=== PATIENT | female | born 1940 | race Two or more races ===

== ENCOUNTER 2022-01-16 13:12 | Inpatient (IN) | payer MEDICARE, OTHER ==
[~2022-01-16] VITALS: Ht 165.1 cm; Wt 69.0 kg
[2022-01-16 15:14] LABS: Basophils # (auto) 0.1 10 ^3/uL (0-0.2); Basophils % (auto) 0.4 % (0.0-2.0); Eosinophils # (auto) 0.1 10 ^3/uL (0-0.8); Eosinophils % (auto) 0.5 % (0.0-7.0); Hematocrit 39.7 % (36.0-46.0); Hemoglobin 12.9 g/dL (12.2-16.2); Lymphocytes # (auto) 1.8 10 ^3/uL (0.4-5.4); Lymphocytes % (auto) 11.6 % (10.0-50.0); Mean Corpuscular Hemoglobin 28.1 pg (28.0-32.0); Mean Corpuscular Hgb Conc. 32.5 g/dL (32.0-36.0); Mean Corpuscular Volume 86.6 fL (80.0-100.0); Monocytes # (auto) 0.9 10 ^3/uL (0-1.3); Monocytes % (auto) 5.6 % (0.0-12.0); Neutrophils # (auto) 12.9 10 ^3/uL (1.6-8.6); Neutrophils % (auto) 81.9 % (37.0-80.0); Red Blood Cells 4.59 10^6/uL (4.0-5.20); Red Cell Distribution Width 16.3 % (11.8-14.3); White Blood Cell 15.7 10^3/uL (4.4-10.8)
[2022-01-16 15:34] LABS: Albumin 3.2 g/dL (3.4-5.0); BUN/Creatinine Ratio 26.8; Calcium 9.2 mg/dL (8.5-10.1); Potassium 4.1 mmol/L (3.5-5.1)
[2022-01-16 15:43] LABS: Bilirubin, Total 0.4 mg/dL (0.2-1.0); Total Protein 6.8 g/dL (6.4-8.2)
[2022-01-16] MEDS ORDERED: cefTRIAXone 1GM/50ML D5W 50 ML IV ONE (17:00)
[2022-01-16 17:17] LABS: Urine Bacteria NONE SEEN /hpf (None Seen); Urine Blood Negative /uL (Negative); Urine Hyaline Cast MOD /lpf (0 - 2); Urine Mucus FEW (None Seen); Urine Specific Gravity 1.022 (1.001-1.035); Urine WBC 24 /hpf (0 - 5)
[2022-01-16] MEDS ORDERED: PANTOPRAZOLE 40 MG/10 ML VIAL INJ IV ONE (19:15)
[2022-01-16] MEDS ORDERED: ONDANSETRON HCL 4 MG/2 ML VIAL IV PRN (19:15)
[2022-01-16] MEDS: SODIUM CHLORIDE 0.9% 1,000 ML IV SCH (20:49)
[2022-01-17] VITALS (7 sets, daily range): BP systolic 126–157; BP diastolic 40–54
[2022-01-17] MEDS: SODIUM CHLORIDE 0.9% 1,000 ML IV SCH ×3 (05:15→20:23)
[2022-01-17 06:02] LABS: Calcium 8.8 mg/dL (8.5-10.1); Potassium 3.4 mmol/L (3.5-5.1)
[2022-01-17 06:05] LABS: BUN/Creatinine Ratio 24.7
[2022-01-17 06:08] LABS: Bilirubin, Total 0.6 mg/dL (0.2-1.0); Total Protein 6.2 g/dL (6.4-8.2)
[2022-01-17 06:24] LABS: Basophils # (auto) 0.1 10 ^3/uL (0-0.2); Basophils % (auto) 0.6 % (0.0-2.0); Eosinophils # (auto) 0.2 10 ^3/uL (0-0.8); Eosinophils % (auto) 2.5 % (0.0-7.0); Hematocrit 36.9 % (36.0-46.0); Hemoglobin 12.4 g/dL (12.2-16.2); Lymphocytes # (auto) 1.4 10 ^3/uL (0.4-5.4); Lymphocytes % (auto) 14.3 % (10.0-50.0); Mean Corpuscular Hemoglobin 30.1 pg (28.0-32.0); Mean Corpuscular Hgb Conc. 33.6 g/dL (32.0-36.0); Mean Corpuscular Volume 89.7 fL (80.0-100.0); Monocytes # (auto) 0.6 10 ^3/uL (0-1.3); Neutrophils # (auto) 7.5 10 ^3/uL (1.6-8.6); Neutrophils % (auto) 76.6 % (37.0-80.0); Red Blood Cells 4.11 10^6/uL (4.0-5.20); Red Cell Distribution Width 16.2 % (11.8-14.3); White Blood Cell 9.8 10^3/uL (4.4-10.8)
[2022-01-17] MEDS ORDERED: LEVO50TA7 PO (09:21)
[2022-01-17] MEDS: cefTRIAXone 1GM/50ML D5W 50 ML IV SCH (09:23)
[2022-01-17] MEDS: ENOXAPARIN SOD 40 MG/0.4 ML SYRINGE SC SCH (09:24)
[2022-01-17] MEDS ORDERED: PANTOPRAZOLE 40 MG/10 ML VIAL INJ IV SCH (10:00)
[2022-01-17] MEDS ORDERED: NITR-87 PO (12:26)
[2022-01-17] MEDS ORDERED: LEVO250T69 PO (12:27)
[2022-01-17] MEDS: LEVOTHYROXINE SODIUM 100 MCG TAB PO SCH (13:46)
[2022-01-17] MEDS: ACETAMINOPHEN 325 MG TAB PO PRN (17:28)
[2022-01-17] MEDS ORDERED: ATEN50TA PO (18:47)
[2022-01-17] MEDS ORDERED: ACET-1156 PO (18:48)
[2022-01-17] MEDS ORDERED: CHOL1CAP58 PO (18:49)
[2022-01-17] MEDS ORDERED: CYANPOW IM (18:51)
[2022-01-17] MEDS ORDERED: ALEN70TA74 PO (18:51)
[2022-01-17] MEDS ORDERED: HYDR25TA5 PO (18:52)
[2022-01-18 05:00] VITALS: BP 146/57
[2022-01-18] MEDS: LEVOTHYROXINE SODIUM 100 MCG TAB PO SCH (06:58)
[2022-01-18 09:00] VITALS: BP 154/50
[2022-01-18] MEDS: cefTRIAXone 1GM/50ML D5W 50 ML IV SCH (09:35)
[2022-01-18] MEDS: ENOXAPARIN SOD 40 MG/0.4 ML SYRINGE SC SCH (09:35)
[2022-01-18 12:30] VITALS: BP 150/50
[2022-01-18] MEDS: ACETAMINOPHEN 325 MG TAB PO PRN (15:12)
[2022-01-18 15:55] VITALS: BP 150/50
[2022-01-18 17:30] VITALS: BP 144/76
== END 2022-01-18 17:50 | disposition home health service (06) | DRG 690 ==
LOC: ER 13:12 → EDBD 13:12 → OVERFLOW 19:03 → CENTRAL 01-17 04:10
PROVIDERS: ADMIT Nurse Practitioner Family; ATTEND Student in an Organized Health Care Education/Training Program
DX: N30.90 Cystitis, unspecified without hematuria (principal); E46 Unspecified protein-calorie malnutrition; L89.90 Pressure ulcer of unspecified site, unspecified stage; S00.03XA Contusion of scalp, initial encounter; E89.0 Postprocedural hypothyroidism; I10 Essential (primary) hypertension; W18.39XA Other fall on same level, initial encounter; Y93.89 Activity, other specified; Z68.25 Body mass index [BMI] 25.0-25.9, adult; Z88.2 Allergy status to sulfonamides; Y92.89 Other specified places as the place of occurrence of the external cause; Y99.8 Other external cause status
CPT/HCPCS: 36415; 70450; 80053; 81001; 85025; 87040; 87086; 87426; 96365; 96375; 97116; 97163; 97530; C9113; G0378; J0696

== ENCOUNTER 2024-08-01 11:02 | Inpatient (IN) | payer OTHER, MEDICARE ==
[~2024-08-01] VITALS: Ht 157.5 cm; Wt 48.3 kg
[~2024-08-01 11:02] MED LIST: ACET-1881 PO; ALEN70TA74 PO; ATEN50TA PO; CHOL1CAP58 PO; CYANPOW IM; HYDR25TA5 PO; LEVO250T58 PO; LEVO50TA7 PO; NITR-87 PO
--- NOTE | 2024-08-01 11:16 | ED.PDOC ---
History of Present Illness HPI Comments 83-year-old female brought by paramedics because she has been having lower back and pelvic pain for the past three months. For the past two days her pelvic pain has been excruciating 12/18. She does not eat solid food. Puree food. She has not been tolerating diet well in the last several weeks. She is bed ridden. Mostly sitting in a chair. She does not ambulate. Unable to get a good history from the patient. Chief Complaint: Failure to Thrive Time Seen by MD: 11:04 Primary Care Provider: UNKNOWN Reviewed Notes: Nurses Notes, Medications, Allergies Allergies: Coded Allergies: Sulfa Antibiotics (Verified Allergy, Severe, 01/16/22) Home Meds Reported Medications Hctz (Hydrochlorothiazide) 25 Mg Tab, 12.5 MG PO DAILY, TAB 01/17/22 Alendronate Sodium (Alendronate Sodium) 70 Mg Tab, 1 TAB PO QWEEKLY, #4 TAB 3 Refills 01/17/22 Cyanocobalamin (Cyanocobalamin) Pow, 1 VIAL IM weekly, POW 01/17/22 Cholecalciferol (Vitamin D3 1.25 mg (11871 Ut)) 1 Cap Cap, 1 CAP PO Weekly, CAP 01/17/22 Acetaminophen (Acetaminophen) 325 Mg Tab, 500 MG PO Q6HP for pain for 30 Days, MG 0 Refills 01/17/22 Atenolol (Atenolol) 50 Mg Tab, 50 MG PO BID for 30 Days, MG 01/17/22 Levofloxacin Hemihydrate (LEVOFLOXACIN) 250 Mg Tab, 250 MG PO DAILY for 10 Days, MG 01/17/22 Nitrofurantoin Monohydrate Mac (Macrobid) 100 Mg Cap, 100 MG PO DAILY, CAP 01/17/22 Levothyroxine Sodium (Levothyroxine Sodium) 50 Mcg Tab, 100 MCG PO DAILY, TAB 01/17/22 Information Source: Patient, Emergency Med Personnel Mode of Arrival: EMS Severity: Moderate Timing: Days Duration: Since onset Past Medical History PAST MEDICAL HISTORY: Denies Surgical History: Denies all surgeries MATTRESS FILLING MACHINE TENDER History: No Pertinent MATTRESS FILLING MACHINE TENDER History Family History Family History: Reviewed,noncontributory to illness Social History Smoker: Non-Smoker Alcohol: Denies ETOH Use Drugs: Denies Drug Use Lives In: Home Constitutional: denies: chills, diaphoresis, fatigue, fever, malaise, sweats, weakness, others EENTM: denies: blurred vision, double vision, ear bleeding, ear discharge, ear drainage, ear pain, ear ringing, eye pain, eye redness, hearing loss, mouth pain, mouth swelling, nasal discharge, nose bleeding, nose congestion, nose pain, photophobia, tearing, throat pain, throat swelling, voice changes, others Respiratory: denies: cough, hemoptysis, orthopnea, SOB at rest, shortness of breath, SOB with excertion, stridor, wheezing, others Cardiovascular: denies: chest pain, dizzy spells, diaphoresis, Dyspnea on exertion, edema, irregular heart beat, left arm pain, lightheadedness, palp itations, PND, syncope, others Gastrointestinal: denies: abdomen distended, abdominal pain, blood streaked bowels, constipated, diarrhea, dysphagia, difficulty swallowing, hematemesis, melena, nausea, poor appetite, poor fluid intake, rectal bleeding, rectal pain, vomiting, others Genitourinary: denies: abnormal vagina bleeding, burning, dyspareunia, dysuria, flank pain, frequency, hematuria, incontinence, pain, , vagina discharge, urgency, others Neurological: denies: dizziness, fainting, headache, left sided numbness, left sided weakness, numbness, paresthesia, pre-existing deficit, right sided numbness, right sided weakness, seizure, speech problems, tingling, tremors, weakness, others Musculoskeletal: reports: back pain (Low), joint pain (Pelvic); denies: gout, joint swelling, muscle pain, muscle stiffness, neck pain, others Integumetry: denies: bruises, change in color, change in hair/nails, dryness, laceration, lesions, lumps, rash, wounds, others Allergic/Immunocompromised: denies: Difficulty Healing, Frequent Infections, Hives, Itching, others Hematologic/Lymphatic: denies: anemia, blood clots, easy bleeding, easy bruising, swollen glands, others Endocrine: denies: excessive hunger, excessive sweating, excessive thirst, excessive urination, flushing, intolerance to cold, intolerance to heat, unexplained weight gain, unexplained weight loss, others Psychiatric: denies: anxiety, bipolar disorder, depression, hopeless, panic disorder, schizophrenia, sleepless, suicidal, others Physical Exam General Appearance: Moderate Distress, Thin HEENT: Normal ENT Inspection, Pharynx Normal, TMs Normal Neck: Full Range of Motion, Non-Tender, Normal, Normal Inspection Respiratory: Chest Non-Tender, Lungs Clear, No Accessory Muscle Use, No Respiratory Distress, Normal Breath Sounds Cardiovascular: No Edema, No JVD, No Murmur, No Gallop, Normal Peripheral Pulses, Regular Rate/Rhythm Breast Exam: Deferred Gastrointestinal: No Organomegaly, Non Tender, No Pulsatile Mass, Normal Bowel Sounds, Soft Genitalia: Deferred Pelvic: Deferred Rectal: Deferred Extremities: No calf tenderness, No pedal edema Musculoskeletal : Apperance: Normal Neurologic: Alert, No Motor Deficits, No Sensory Deficits Cerebellar Function: NOT DONE Reflexes: NOT DONE Skin: Normal Color Peripheral Pulses: 3+ Radial (R), 3+ Radial (L) Lymphatic: NOT DONE Was a procedure done? Was a procedure done?: No Differential Dx Considerations may include: Anemia Electrolyte imbalance X-Ray, Labs, Meds, VS Vital Signs Date Time Temp Pulse Resp B/P (MAP) Pulse Ox O2 Delivery O2 Flow Rate FiO2 08/01/24 11:26 97.7 62 16 157/47 (83) 96 97.7 08/01/24 11:21 62 16 96 Room Air* 0 21 08/01/24 11:10 98.5 62 20 153/58 (89) 97 98.5 Lab Test 08/01/24 11:40 Range/Units White Blood Count Pending Red Blood Count Pending Hemoglobin Pending Hematocrit Pending Mean Corpuscular Volume Pending Mean Corpuscular Hemoglobin Pending Mean Corpuscular Hemoglobin Concent Pending Red Cell Distribution Width Pending Platelet Count Pending Mean Platelet Volume Pending Neutrophils (%) (Auto) Pending Lymphocytes (%) (Auto) Pending Monocytes (%) (Auto) Pending Basophils (%) (Auto) Pending Neutrophils # (Auto) Pending Lymphocytes # (Auto) Pending Monocytes # (Auto) Pending Sodium Level Pending Potassium Level Pending Chloride Level Pending Carbon Dioxide Level Pending Anion Gap Pending Blood Urea Nitrogen Pending Creatinine Pending Glomerular Filtration Rate Calc Pending BUN/Creatinine Ratio Pending Serum Glucose Pending Calcium Level Pending Troponin I High Sensitivity Pending Patient alert. Answering simple questions. She is underweight. Vitals stable. Possible she is not tolerating diet. Failure to thrive. Review her history. Chronic in nature. Explained to the patient that she will be admitted for further workup checking her feeding status Continue cardiac monitoring. [address] [address] Ph: [phone] DIAGNOSTIC IMAGING Diagnostic Imaging Report : [id number] Signed PATIENT: DAVY LEVINE ACCT: [id number] UNIT: [id number] : 1940 LOC: ER ROOM / BED: / AGE / SEX: 83 / F ADM STATUS: REG ER SERVICE 1104 ORDERING PHYSICIAN: JANELLE GARCIA MD PROCEDURE(s): CXRP - CHEST PORTABLE REASON: sob ORDER NUMBER(s): [id number], ACCESSION NUMBER(s): [id number] CHEST RADIOGRAPH Indication: sob Technique: Single frontal view of the chest was obtained Comparison: None FINDINGS: Lines and Tubes: None Lungs: No focal consolidation. Pleura: No effusion. No pneumothorax. Cardiomediastinal contours: Unremarkable Bones: No acute osseous abnormality. Old left proximal humerus fracture. IMPRESSION: 1. No acute cardiopulmonary disease. ATED BY: ALEXIS CAROLINA MD DICTATED DATE/TIME: 08/01/24 1140 SIGNED BY: ALEXIS CAROLINA MD SIGNED DATE/TIME: 08/01/24 1140 CC: Time of 1ST Reevaluation: 11:14 Reevaluation 1ST: Unchanged Patient Education/Counseling: Diagnosis, Treatment, Prognosis Family Education/Counseling: No Family Present Departure 1 Departure Time of Disposition: 11:15 Impression: Primary Impression: Failure to thrive Qualified Codes: R62.7 - Adult failure to thrive Disposition: ADMITTED INPATIENT Admit to: Med Surg Condition: Guarded Critical Care Note Critical Care Time?: No Stability Stability form required: No Heart Score Heart Score: Heart Score Response (Comments) Value History Slightly Suspicious 0 EKG Normal 0 Age >65 2 Risk Factors >3 or Hx ASHD 2 Troponin Normal limit 0 Total 4 I personally scribed for JANELLE GARCIA MD ([email or web address]) on 08/01/24 at 11:49. Electronically submitted by Nilson Graham ([email or web address]). JANELLE GARCIA MD August 01, 2024 11:16
[2024-08-01 11:21] VITALS: PULSE 62; RESP 16; O2SAT 96
--- NOTE | 2024-08-01 11:43 | DVH ---
CHEST RADIOGRAPH Indication: sob Technique: Single frontal view of the chest was obtained Comparison: None FINDINGS: Lines and Tubes: None Lungs: No focal consolidation. Pleura: No effusion. No pneumothorax. Cardiomediastinal contours: Unremarkable Bones: No acute osseous abnormality. Old left proximal humerus fracture. IMPRESSION: 1. No acute cardiopulmonary disease.
[2024-08-01 12:03] LABS: Basophils # (auto) 0.1 10 ^3/uL (0-0.2); Basophils % (auto) 0.9 % (0.0-2.0); Eosinophils # (auto) 0.2 10 ^3/uL (0-0.8); Eosinophils % (auto) 2.5 % (0.0-7.0); Hematocrit 38.3 % (36.0-46.0); Hemoglobin 12.8 g/dL (12.2-16.2); Lymphocytes # (auto) 1.7 10 ^3/uL (0.4-5.4); Lymphocytes % (auto) 20.7 % (10.0-50.0); Mean Corpuscular Hemoglobin 30.2 pg (28.0-32.0); Mean Corpuscular Hgb Conc. 33.5 g/dL (32.0-36.0); Mean Corpuscular Volume 90.2 fL (80.0-100.0); Monocytes # (auto) 0.6 10 ^3/uL (0-1.3); Monocytes % (auto) 7.7 % (0.0-12.0); Neutrophils # (auto) 5.5 10 ^3/uL (1.6-8.6); Neutrophils % (auto) 68.2 % (37.0-80.0); Platelet Count (auto) 346 10^3/uL (140-450); Red Blood Cells 4.24 10^6/uL (4.0-5.20); Red Cell Distribution Width 15.4 % (11.8-14.3); White Blood Cell 8.1 10^3/uL (4.4-10.8)
[2024-08-01 12:11] LABS: Potassium 3.5 mmol/L (3.5-5.1)
[2024-08-01 12:12] LABS: Anion Gap 9 (5-15); Carbon Dioxide 28 mmol/L (20-31); Sodium 144 mmol/L (136-145)
[2024-08-01 12:18] LABS: BUN/Creatinine Ratio 14.3 (10.0-20.0); Glucose 79 mg/dL (74-106)
[2024-08-01 12:20] LABS: Blood Urea Nitrogen 8 mg/dL (9-23); Calcium 8.5 mg/dL (8.7-10.4); Chloride 107 mmol/L (98-107)
[2024-08-01 13:50] LABS: Urine Bacteria FEW /hpf (None Seen); Urine Blood TRACE /uL (Negative); Urine Clarity Turbid (Clear); Urine Color Light-Orange (Yellow); Urine Mucus FEW (None Seen); Urine Protein, UAD Negative (Negative); Urine Specific Gravity 1.023 (1.001-1.035); Urine Squamous Epithelial Cell FEW /hpf (<5); Urine Urobilinogen 2 mg/dL (Negative); Urine WBC 13 /HPF (0-5)
--- NOTE | 2024-08-01 15:12 | DVHHP2 ---
Admitting Diagnosis: Failure to thrive History of Present Illness 83-year-old female brought by paramedics because she has been having lower back and pelvic pain for the past three months. For the past two days her pelvic pain has been excruciating 12/18. She does not eat solid food. Puree food. She has not been tolerating diet well in the last several weeks. She is bed ridden. Mostly sitting in a chair. She does not ambulate. Unable to get a good history from the patient. PAST MEDICAL HISTORY: Denies Surgical History: Denies all surgeries DIRECTOR TELEHEALTH History: No Pertinent DIRECTOR TELEHEALTH History Family History Family History: Reviewed,noncontributory to illness Social History Smoker: Non-Smoker Alcohol: Denies ETOH Use Drugs: Denies Drug Use Lives In: Home Allergies: Coded Allergies: Sulfa Antibiotics (Verified Allergy, Severe, 01/16/22) Home Meds Reported Medications Hctz (Hydrochlorothiazide) 25 Mg Tab, 12.5 MG PO DAILY, TAB 01/17/22 Alendronate Sodium (Alendronate Sodium) 70 Mg Tab, 1 TAB PO QWEEKLY, #4 TAB 3 Refills 01/17/22 Cyanocobalamin (Cyanocobalamin) Pow, 1 VIAL IM weekly, POW 01/17/22 Cholecalciferol (Vitamin D3 1.25 mg (82344 Ut)) 1 Cap Cap, 1 CAP PO Weekly, CAP 01/17/22 Acetaminophen (Acetaminophen) 325 Mg Tab, 500 MG PO Q6HP for pain for 30 Days, MG 0 Refills 01/17/22 Atenolol (Atenolol) 50 Mg Tab, 50 MG PO BID for 30 Days, MG 01/17/22 Levofloxacin Hemihydrate (LEVOFLOXACIN) 250 Mg Tab, 250 MG PO DAILY for 10 Days, MG 01/17/22 Nitrofurantoin Monohydrate Mac (Macrobid) 100 Mg Cap, 100 MG PO DAILY, CAP 01/17/22 Levothyroxine Sodium (Levothyroxine Sodium) 50 Mcg Tab, 100 MCG PO DAILY, TAB 01/17/22 Current Medications Current Medications Medications (Trade) Dose Ordered Sig/Manas Route PRN Reason Start Time Stop Time Status Last Admin Ceftriaxone Sodium 50 ml @ 100 mls/hr DAILY IV 08/01/24 15:15 UNV Sodium Chloride (Saline Lock Ns) 10 ml Q8HR IV 08/01/24 22:00 UNV Docusate Sodium (Colace Capsule) 100 mg BIDPRN PRN PO FOR CONSTIPATION 08/01/24 15:15 UNV Acetaminophen (Tylenol Tablet) 650 mg Q6HP PRN PO PAIN SCALE 1-3 OR TEMP>100.4 08/01/24 15:15 UNV Acetaminophen/ Hydrocodone Bitart (Jud 5/325MG Tab) 1 tab Q4HP PRN PO MODERATE PAIN (4-6 PAIN SCALE) 08/01/24 15:15 UNV Ondansetron HCl (Zofran) 4 mg Q4HP PRN IV NAUSEA / VOMITING 08/01/24 15:15 UNV Enoxaparin Sodium (Lovenox) 40 mg DAILY SC 08/02/24 10:00 UNV Hydrochlorothiazide (hydroCHLOROthiazide TABLET) 12.5 mg DAILY PO 08/02/24 10:00 UNV Levothyroxine Sodium (Synthroid Tablet) 100 mcg DAILY PO 08/02/24 10:00 UNV Patient Own Medication 1 tab QWEEKLY PO 08/01/24 15:15 UNV Patient Own Medication 50 mg BID PO 08/01/24 22:00 UNV Patient Own Medication 1 cap Weekly PO 08/01/24 15:15 UNV Patient Own Medication 1 vial weekly IM 08/01/24 15:15 UNV Vital Signs Vital Signs Date Time Temp Pulse Resp B/P (MAP) Pulse Ox O2 Delivery O2 Flow Rate FiO2 08/01/24 14:00 97.9 58 18 145/50 (81) 96 97.9 08/01/24 11:21 Room Air* 0 21 Physical Exam Generally-83 years old woman, well nourished well developed. No apparent distress HEENT-atraumatic normocephalic Heart-rate and rhythm Lungs clear to auscultate bilaterally Abdomen soft, mild tender suprapubic, nondistended Musculoskeletal-no edema cyanosis Neuro-awake, alert, follows simple commands, gets confused, strength and sensation intact Results Labs Test 08/01/24 13:08 08/01/24 12:46 08/01/24 11:40 Range/Units Urine Color Light-orange Yellow Urine Clarity Turbid H Clear Urine pH 6.0 5.0-9.0 Urine Specific [place] 1.023 1.001-1.035 Urine Protein Negative Negative Urine Ketones 2+ H Negative Urine Blood Trace H Negative /uL Urine Nitrite Negative Negative Urine Bilirubin Negative Negative Urine Urobilinogen 2 H Negative mg/dL Urine Leukocyte Esterase 1+ Negative /uL Urine RBC 20 0 - 4 /hpf Urine Microscopic WBC 13 H 0-5 /HPF Urine Squamous Epithelial Cells Few <5 /hpf Urine Bacteria Few H None Seen /hpf Urine Mucus Few None Seen Urine Glucose Normal Normal mg/dL Troponin I High Sensitivity 6 </=34 ng/L White Blood Count 8.1 4.4-10.8 10^3/uL Red Blood Count 4.24 4.0-5.20 10^6/uL Hemoglobin 12.8 12.2-16.2 g/dL Hematocrit 38.3 36.0-46.0 % Mean Corpuscular Volume 90.2 80.0-100.0 fL Mean Corpuscular Hemoglobin 30.2 28.0-32.0 pg Mean Corpuscular Hemoglobin Concent 33.5 32.0-36.0 g/dL Red Cell Distribution Width 15.4 H 11.8-14.3 % Platelet Count 346 140-450 10^3/uL Mean Platelet Volume 8.5 6.9-10.8 fL Neutrophils (%) (Auto) 68.2 37.0-80.0 % Lymphocytes (%) (Auto) 20.7 10.0-50.0 % Monocytes (%) (Auto) 7.7 0.0-12.0 % Eosinophils (%) (Auto) 2.5 0.0-7.0 % Basophils (%) (Auto) 0.9 0.0-2.0 % Neutrophils # (Auto) 5.5 1.6-8.6 10 ^3/uL Lymphocytes # (Auto) 1.7 0.4-5.4 10 ^3/uL Monocytes # (Auto) 0.6 0-1.3 10 ^3/uL Eosinophils # (Auto) 0.2 0-0.8 10 ^3/uL Basophils # (Auto) 0.1 0-0.2 10 ^3/uL Nucleated Red Blood Cells 0.0 % Sodium Level 144 136-145 mmol/L Potassium Level 3.5 3.5-5.1 mmol/L Chloride Level 107 98-107 mmol/L Carbon Dioxide Level 28 20-31 mmol/L Anion Gap 9 5-15 Blood Urea Nitrogen 8 L 9-23 mg/dL Creatinine 0.56 0.550-1.02 mg/dL Glomerular Filtration Rate Calc 90 >90 mL/min BUN/Creatinine Ratio 14.3 10.0-20.0 Serum Glucose 79 74-106 mg/dL Calcium Level 8.5 L 8.7-10.4 mg/dL Primary Diagnosis Failure to thrive likely due to acute urinary tract infection Plan Positive UA Start ceftriaxone 1 g daily Check urine culture IV fluids Antiemetic Bowel regimen Full code Lovenox for DVT prophylaxis No GI prophylaxis needed Regular diet Plan discussed with: Patient Problems List: (1) Failure to thrive Status: Acute Date of Service: August 01, 2024 Billing Provider: REGGIE PATEL MD Common Visit Codes: [id number] INP/OBS CARE (MOD) REGGIE PATEL MD August 01, 2024 15:12
[2024-08-01] MEDS ORDERED: ONDANSETRON HCL 4 MG/2 ML VIAL IV PRN (15:15)
[2024-08-01] MEDS ORDERED: ACETAMINOPHEN 325 MG TAB PO PRN (15:15)
[2024-08-01] MEDS: cefTRIAXone 1GM/50ML D5W 50 ML IV SCH (15:51)
[2024-08-01] MEDS ORDERED: CYANOCOBALAMIN IM SCH (17:00)
[2024-08-01 17:30] VITALS: BP 149/47; PULSE 66; RESP 18; TEMP 98; O2SAT 98
[2024-08-01] MEDS ORDERED: LOSA-534 PO (18:42)
[2024-08-01] MEDS ORDERED: MET500T PO (18:43)
[2024-08-01] MEDS ORDERED: APIX5TAB PO (18:44)
[2024-08-01] MEDS ORDERED: DRON400T PO (18:45)
[2024-08-01 20:00] VITALS: PULSE 71; RESP 16; O2SAT 97
[2024-08-01 21:00] VITALS: BP 149/47; PULSE 70; RESP 18; TEMP 97.9; O2SAT 98
[2024-08-01] MEDS: ATENOLOL 25 MG TAB PO SCH (22:00)
[2024-08-01] MEDS: SODIUM CHLOR 0.9% PF (SALINE LOCK) 10ML VIAL/SYR IV SCH (22:13)
[2024-08-02] VITALS (7 sets, daily range): BP systolic 117–154; BP diastolic 59–67; PULSE 65–92; RESP 16–19; TEMP 97.4–97.8; O2SAT 92–96
[2024-08-02] MEDS: HYDROcodone-ACET 5/325MG TAB PO PRN (05:40)
[2024-08-02 08:02] LABS: Basophils # (auto) 0.1 10 ^3/uL (0-0.2); Basophils % (auto) 0.5 % (0.0-2.0); Eosinophils # (auto) 0.1 10 ^3/uL (0-0.8); Eosinophils % (auto) 1.4 % (0.0-7.0); Hematocrit 39.5 % (36.0-46.0); Hemoglobin 13.4 g/dL (12.2-16.2); Lymphocytes # (auto) 1.4 10 ^3/uL (0.4-5.4); Lymphocytes % (auto) 13.6 % (10.0-50.0); Mean Corpuscular Hemoglobin 30.3 pg (28.0-32.0); Mean Corpuscular Hgb Conc. 33.8 g/dL (32.0-36.0); Mean Corpuscular Volume 89.4 fL (80.0-100.0); Monocytes # (auto) 0.6 10 ^3/uL (0-1.3); Monocytes % (auto) 5.9 % (0.0-12.0); Neutrophils # (auto) 8.2 10 ^3/uL (1.6-8.6); Neutrophils % (auto) 78.6 % (37.0-80.0); Platelet Count (auto) 361 10^3/uL (140-450); Red Blood Cells 4.42 10^6/uL (4.0-5.20); Red Cell Distribution Width 15.4 % (11.8-14.3); White Blood Cell 10.4 10^3/uL (4.4-10.8)
[2024-08-02 08:24] LABS: Alanine Aminotransferase < 9 U/L (7-40); Albumin 3.7 g/dL (3.2-4.8); Alkaline Phosphatase 75 U/L (46-116); Anion Gap 11 (5-15); Aspartate Aminotransferase 45 U/L (13-40); Bilirubin, Total 0.5 mg/dL (0.2-1.0); Blood Urea Nitrogen 9 mg/dL (9-23); Calcium 9.5 mg/dL (8.7-10.4); Carbon Dioxide 27 mmol/L (20-31); Chloride 105 mmol/L (98-107); Glucose 98 mg/dL (74-106); Potassium 3.5 mmol/L (3.5-5.1); Sodium 143 mmol/L (136-145); Total Protein 6.1 g/dL (5.7-8.2)
[2024-08-02] MEDS: ENOXAPARIN SOD 40 MG/0.4 ML SYRINGE SC SCH (09:10)
[2024-08-02] MEDS: LEVOTHYROXINE SODIUM 50 MCG TAB PO SCH (09:10)
[2024-08-02] MEDS ORDERED: hydroCHLOROthiazide 25 MG TAB PO SCH (10:00)
--- NOTE | 2024-08-02 17:58 | DVHPN2 ---
Subjective In bed resting Changes from previous H/P or p: No Changes Objective Vitals Vital Signs Date Time Temp Pulse Resp B/P (MAP) Pulse Ox O2 Delivery O2 Flow Rate FiO2 08/02/24 16:49 97.7 74 19 154/59 (90) 92 97.7 08/02/24 08:00 Room Air* 0 21 Intake/Output Intake and Output 08/02/24 07:00 Output Total 750 ml Balance -750 ml Output Urine Total 750 ml General Appearance: Alert, Oriented X3 Lungs: Clear to auscultation Cardiovascular: Regular rate, Normal S1, Normal S2 Medications Current Medications Medications Dose Ordered Sig/Manas Route Start Time Stop Time Status Last Admin Dose Admin Ceftriaxone Sodium 50 ml @ 100 mls/hr DAILY IV 08/01/24 15:15 08/02/24 09:09 100 MLS/HR Sodium Chloride 10 ml Q8HR IV 08/01/24 22:00 08/02/24 14:00 10 ML Docusate Sodium 100 mg BIDPRN PRN PO 08/01/24 15:15 Acetaminophen 650 mg Q6HP PRN PO 08/01/24 15:15 Acetaminophen/ Hydrocodone Bitart 1 tab Q4HP PRN PO 08/01/24 15:15 08/02/24 05:40 1 TAB Ondansetron HCl 4 mg Q4HP PRN IV 08/01/24 15:15 Enoxaparin Sodium 40 mg DAILY SC 08/02/24 10:00 08/02/24 09:10 40 MG Hydrochlorothiazide 12.5 mg DAILY PO 08/02/24 10:00 Hold Levothyroxine Sodium 100 mcg DAILY PO 08/02/24 10:00 08/02/24 09:10 100 MCG Alendronate Sodium 70 mg QWEEKLY@0600 PO 08/03/24 06:00 Atenolol 50 mg BID PO 08/01/24 22:00 Ergocalciferol 50,000 unit QWEEKLY PO 08/03/24 17:00 Patient Own Medication 1 vial weekly IM 08/01/24 17:00 Hold Laboratory Results Laboratory Tests 08/02/24 07:20 Chemistry Test 08/02/24 07:20 Albumin 3.7 g/dL (3.2-4.8) Calcium Level 9.5 mg/dL (8.7-10.4) Total Protein 6.1 g/dL (5.7-8.2) LFT Test 08/02/24 07:20 Alanine Aminotransferase (ALT) < 9 U/L (7-40) Alkaline Phosphatase 75 U/L (46-116) Aspartate Amino Transferase (AST) 45 U/L (13-40) H Total Bilirubin 0.5 mg/dL (0.2-1.0) Urinalysis Test 08/01/24 13:08 Urine Color Light-orange (Yellow) Urine Clarity Turbid (Clear) H Urine pH 6.0 (5.0-9.0) Urine Specific [place] 1.023 (1.001-1.035) Urine Protein Negative (Negative) Urine Ketones 2+ (Negative) H Urine Blood Trace /uL (Negative) H Urine Nitrite Negative (Negative) Urine Bilirubin Negative (Negative) Urine Urobilinogen 2 mg/dL (Negative) H Urine Leukocyte Esterase 1+ /uL (Negative) Urine RBC 20 /hpf (0 - 4) Urine Microscopic WBC 13 /HPF (0-5) H Urine Squamous Epithelial Cells Few /hpf (<5) Urine Bacteria Few /hpf (None Seen) H Urine Mucus Few (None Seen) Urine Glucose Normal mg/dL (Normal) Microbiology Microbiology Date/Time Source Procedure Growth Status 08/01/24 13:08 Urine - [place] Urine Culture - Preliminary Resulted Assessment/Plan Assessment/Plan Failure to thrive likely due to acute urinary tract infection Plan Positive UA Start ceftriaxone 1 g daily Check urine culture IV fluids Antiemetic Bowel regimen Full code Lovenox for DVT prophylaxis No GI prophylaxis needed Regular diet Plan discussed with: Patient Date of Service: August 02, 2024 Billing Provider: MAGDALENA DONOVAN MD Common Visit Codes: [id number] INP/OBS CARE(HIGH) MAGDALENA DONOVAN MD August 02, 2024 17:58
[2024-08-02] MEDS: DOCUSATE SOD 100 MG CAP PO PRN (21:31)
[2024-08-03] VITALS (7 sets, daily range): BP systolic 114–160; BP diastolic 48–69; PULSE 59–77; RESP 16–19; TEMP 97.4–98.1; O2SAT 95–97
[2024-08-03] MEDS: ALENDRONATE SODIUM 10 MG TAB PO SCH (05:18)
[2024-08-03 07:29] LABS: Basophils # (auto) 0.1 10 ^3/uL (0-0.2); Basophils % (auto) 0.7 % (0.0-2.0); Eosinophils # (auto) 0.2 10 ^3/uL (0-0.8); Eosinophils % (auto) 3.1 % (0.0-7.0); Hematocrit 36.3 % (36.0-46.0); Hemoglobin 12.3 g/dL (12.2-16.2); Lymphocytes # (auto) 1.5 10 ^3/uL (0.4-5.4); Mean Corpuscular Hemoglobin 30.1 pg (28.0-32.0); Mean Corpuscular Volume 88.7 fL (80.0-100.0); Monocytes # (auto) 0.6 10 ^3/uL (0-1.3); Monocytes % (auto) 7.3 % (0.0-12.0); Neutrophils # (auto) 5.4 10 ^3/uL (1.6-8.6); Neutrophils % (auto) 69.9 % (37.0-80.0); Platelet Count (auto) 339 10^3/uL (140-450); Red Blood Cells 4.09 10^6/uL (4.0-5.20); Red Cell Distribution Width 15.6 % (11.8-14.3); White Blood Cell 7.7 10^3/uL (4.4-10.8)
[2024-08-03 07:35] LABS: Alanine Aminotransferase 15 U/L (7-40); Albumin 3.4 g/dL (3.2-4.8); Anion Gap 10 (5-15); BUN/Creatinine Ratio 13.3 (10.0-20.0); Bilirubin, Total 0.3 mg/dL (0.2-1.0); Calcium 9.1 mg/dL (8.7-10.4); Carbon Dioxide 27 mmol/L (20-31); Chloride 105 mmol/L (98-107); Glucose 90 mg/dL (74-106); Sodium 142 mmol/L (136-145)
[2024-08-03 07:41] LABS: Alkaline Phosphatase 116 U/L (46-116); Aspartate Aminotransferase 54 U/L (13-40); Blood Urea Nitrogen 6 mg/dL (9-23); Potassium 3.5 mmol/L (3.5-5.1); Total Protein 5.7 g/dL (5.7-8.2)
[2024-08-03] MEDS ORDERED: ERGOCALCIFEROL 50,000 UNIT(1.25MG) CAP PO SCH (17:00)
--- NOTE | 2024-08-03 21:25 | DVHPN2 ---
Subjective In bed resting Changes from previous H/P or p: No Changes Objective Vitals Vital Signs Date Time Temp Pulse Resp B/P (MAP) Pulse Ox O2 Delivery O2 Flow Rate FiO2 08/03/24 16:54 97.8 72 19 155/69 (97) 96 97.8 08/03/24 08:20 Room Air* 0 21 Intake/Output Intake and Output 08/03/24 07:00 Intake Total 515 ml Output Total 600 ml Balance -85 ml Intake Oral 465 ml IV Total 50 ml Output Urine Total 600 ml General Appearance: Alert, Oriented X3 Lungs: Clear to auscultation Cardiovascular: Regular rate, Normal S1, Normal S2 Medications Current Medications Medications Dose Ordered Sig/Manas Route Start Time Stop Time Status Last Admin Dose Admin Ceftriaxone Sodium 50 ml @ 100 mls/hr DAILY IV 08/01/24 15:15 08/03/24 10:34 100 MLS/HR Sodium Chloride 10 ml Q8HR IV 08/01/24 22:00 08/03/24 21:18 10 ML Docusate Sodium 100 mg BIDPRN PRN PO 08/01/24 15:15 08/03/24 21:15 100 MG Acetaminophen 650 mg Q6HP PRN PO 08/01/24 15:15 Acetaminophen/ Hydrocodone Bitart 1 tab Q4HP PRN PO 08/01/24 15:15 08/02/24 05:40 1 TAB Ondansetron HCl 4 mg Q4HP PRN IV 08/01/24 15:15 Enoxaparin Sodium 40 mg DAILY SC 08/02/24 10:00 08/03/24 10:51 40 MG Hydrochlorothiazide 12.5 mg DAILY PO 08/02/24 10:00 Hold Levothyroxine Sodium 100 mcg DAILY PO 08/02/24 10:00 08/03/24 10:49 100 MCG Alendronate Sodium 70 mg QWEEKLY@0600 PO 08/03/24 06:00 08/03/24 05:18 70 MG Atenolol 50 mg BID PO 08/01/24 22:00 Ergocalciferol 50,000 unit QWEEKLY PO 08/03/24 17:00 Patient Own Medication 1 vial weekly IM 08/01/24 17:00 Hold Laboratory Results Laboratory Tests 08/03/24 06:40 Chemistry Test 08/03/24 06:40 Albumin 3.4 g/dL (3.2-4.8) Calcium Level 9.1 mg/dL (8.7-10.4) Total Protein 5.7 g/dL (5.7-8.2) LFT Test 08/03/24 06:40 Alanine Aminotransferase (ALT) 15 U/L (7-40) Alkaline Phosphatase 116 U/L (46-116) Aspartate Amino Transferase (AST) 54 U/L (13-40) H Total Bilirubin 0.3 mg/dL (0.2-1.0) Urinalysis Test 08/01/24 13:08 Urine Color Light-orange (Yellow) Urine Clarity Turbid (Clear) H Urine pH 6.0 (5.0-9.0) Urine Specific [place] 1.023 (1.001-1.035) Urine Protein Negative (Negative) Urine Ketones 2+ (Negative) H Urine Blood Trace /uL (Negative) H Urine Nitrite Negative (Negative) Urine Bilirubin Negative (Negative) Urine Urobilinogen 2 mg/dL (Negative) H Urine Leukocyte Esterase 1+ /uL (Negative) Urine RBC 20 /hpf (0 - 4) Urine Microscopic WBC 13 /HPF (0-5) H Urine Squamous Epithelial Cells Few /hpf (<5) Urine Bacteria Few /hpf (None Seen) H Urine Mucus Few (None Seen) Urine Glucose Normal mg/dL (Normal) Microbiology Microbiology Date/Time Source Procedure Growth Status 08/01/24 13:08 Urine - [place] Urine Culture - Preliminary Resulted Assessment/Plan Assessment/Plan Failure to thrive likely due to acute urinary tract infection PT eval continue IV abx likely need placement Plan discussed with: Patient My Orders Orders - MAGDALENA DONOVAN MD Procedure Category Date Status Time Pt Request For Service PT 08/03/24 Logged 13:05 Date of Service: August 03, 2024 Billing Provider: MAGDALENA DONOVAN MD Common Visit Codes: [id number] INP/OBS CARE(HIGH) MAGDALENA DONOVAN MD August 03, 2024 21:24
[2024-08-04 06:56] LABS: Basophils # (auto) 0.1 10 ^3/uL (0-0.2); Basophils % (auto) 0.7 % (0.0-2.0); Eosinophils # (auto) 0.3 10 ^3/uL (0-0.8); Hematocrit 35.6 % (36.0-46.0); Hemoglobin 12.1 g/dL (12.2-16.2); Lymphocytes # (auto) 1.7 10 ^3/uL (0.4-5.4); Lymphocytes % (auto) 24.6 % (10.0-50.0); Mean Corpuscular Hemoglobin 30.4 pg (28.0-32.0); Mean Corpuscular Hgb Conc. 34.1 g/dL (32.0-36.0); Mean Corpuscular Volume 89.2 fL (80.0-100.0); Monocytes # (auto) 0.6 10 ^3/uL (0-1.3); Neutrophils # (auto) 4.4 10 ^3/uL (1.6-8.6); Neutrophils % (auto) 61.7 % (37.0-80.0); Nucleated Red Blood Cells % 0.1 %; Platelet Count (auto) 303 10^3/uL (140-450); Red Blood Cells 3.99 10^6/uL (4.0-5.20); Red Cell Distribution Width 15.3 % (11.8-14.3); White Blood Cell 7.1 10^3/uL (4.4-10.8)
[2024-08-04 07:08] LABS: Albumin 3.3 g/dL (3.2-4.8); Alkaline Phosphatase 97 U/L (46-116); Anion Gap 9 (5-15); Aspartate Aminotransferase 26 U/L (13-40); BUN/Creatinine Ratio 13.6 (10.0-20.0); Bilirubin, Total 0.3 mg/dL (0.2-1.0); Calcium 9.2 mg/dL (8.7-10.4); Carbon Dioxide 29 mmol/L (20-31); Chloride 105 mmol/L (98-107); Glucose 91 mg/dL (74-106); Sodium 143 mmol/L (136-145)
[2024-08-04 07:09] LABS: Alanine Aminotransferase 9 U/L (7-40); Blood Urea Nitrogen 6 mg/dL (9-23); Potassium 3.3 mmol/L (3.5-5.1); Total Protein 5.5 g/dL (5.7-8.2)
[2024-08-04 08:56] VITALS: BP 151/86; PULSE 74; RESP 16; TEMP 98.2; O2SAT 97
[2024-08-04 13:00] VITALS: BP 145/67; PULSE 66; RESP 15; TEMP 98.1; O2SAT 98
[2024-08-04 17:00] VITALS: BP 151/71; PULSE 76; RESP 15; TEMP 98.2; O2SAT 98
--- NOTE | 2024-08-04 19:14 | DVHDS2 ---
Discharge Summary Date of Admission August 01, 2024 at 15:04 Date of Discharge: August 04, 2024 Labs/Diagnostic Data: Laboratory Results Test 08/04/24 05:51 08/01/24 13:08 08/01/24 12:46 White Blood Count 7.1 10^3/uL (4.4-10.8) Red Blood Count 3.99 10^6/uL (4.0-5.20) Hemoglobin 12.1 g/dL (12.2-16.2) Hematocrit 35.6 % (36.0-46.0) Mean Corpuscular Volume 89.2 fL (80.0-100.0) Mean Corpuscular Hemoglobin 30.4 pg (28.0-32.0) Mean Corpuscular Hemoglobin Concent 34.1 g/dL (32.0-36.0) Red Cell Distribution Width 15.3 % (11.8-14.3) Platelet Count 303 10^3/uL (140-450) Mean Platelet Volume 8.5 fL (6.9-10.8) Neutrophils (%) (Auto) 61.7 % (37.0-80.0) Lymphocytes (%) (Auto) 24.6 % (10.0-50.0) Monocytes (%) (Auto) 9.0 % (0.0-12.0) Eosinophils (%) (Auto) 4.0 % (0.0-7.0) Basophils (%) (Auto) 0.7 % (0.0-2.0) Neutrophils # (Auto) 4.4 10 ^3/uL (1.6-8.6) Lymphocytes # (Auto) 1.7 10 ^3/uL (0.4-5.4) Monocytes # (Auto) 0.6 10 ^3/uL (0-1.3) Eosinophils # (Auto) 0.3 10 ^3/uL (0-0.8) Basophils # (Auto) 0.1 10 ^3/uL (0-0.2) Nucleated Red Blood Cells 0.1 % Sodium Level 143 mmol/L (136-145) Potassium Level 3.3 mmol/L (3.5-5.1) Chloride Level 105 mmol/L (98-107) Carbon Dioxide Level 29 mmol/L (20-31) Anion Gap 9 (5-15) Blood Urea Nitrogen 6 mg/dL (9-23) Creatinine 0.44 mg/dL (0.550-1.02) Glomerular Filtration Rate Calc 95 mL/min (>90) BUN/Creatinine Ratio 13.6 (10.0-20.0) Serum Glucose 91 mg/dL (74-106) Calcium Level 9.2 mg/dL (8.7-10.4) Total Bilirubin 0.3 mg/dL (0.2-1.0) Aspartate Amino Transferase (AST) 26 U/L (13-40) Alanine Aminotransferase (ALT) 9 U/L (7-40) Alkaline Phosphatase 97 U/L (46-116) Total Protein 5.5 g/dL (5.7-8.2) Albumin 3.3 g/dL (3.2-4.8) Urine Color Light-orange (Yellow) Urine Clarity Turbid (Clear) Urine pH 6.0 (5.0-9.0) Urine Specific [place] 1.023 (1.001-1.035) Urine Protein Negative (Negative) Urine Ketones 2+ (Negative) Urine Blood Trace /uL (Negative) Urine Nitrite Negative (Negative) Urine Bilirubin Negative (Negative) Urine Urobilinogen 2 mg/dL (Negative) Urine Leukocyte Esterase 1+ /uL (Negative) Urine RBC 20 /hpf (0 - 4) Urine Microscopic WBC 13 /HPF (0-5) Urine Squamous Epithelial Cells Few /hpf (<5) Urine Bacteria Few /hpf (None Seen) Urine Mucus Few (None Seen) Urine Glucose Normal mg/dL (Normal) Troponin I High Sensitivity 6 ng/L (</=34) Other Laboratory Tests 08/04/24 05:51 Brief Hx & Hospital Course: 83-year-old female brought by paramedics because she has been having lower back and pelvic pain for the past three months. For the past two days her pelvic pain has been excruciating 12/18. She does not eat solid food. Puree food. She has not been tolerating diet well in the last several weeks. She is bed ridden. Mostly sitting in a chair. She does not ambulate. Unable to get a good history from the patient. She did well and urine cx negative Condition at Discharge: Good Final Diagnosis/Problems List UTI ruled out with negative cultures Discharge Disposition: Hospice - Home Discharge Instruct/Medications Diet: Regular Activity: No Restrictions, As Tolerated Follow Up/Referral: PCP in 7 days Medications: same home medications Discharge Statement: "Patient was advised to return to the ER or call 911 if any headaches, dizziness, shortness of breath, chest pain, abdominal pain, bleeding, fevers, or worsening of medical condition. Patient was counseled about treatment plan, medications, possible side effects, patientverbalized understanding. All questions were answered to the best of my ability. This discharge took greater then 30 minutes in planning, reviewing documentation, counseling the patient, and discussing with other team members." ASSESSMENT ASSESSMENT Assessment UTI Date of Service: August 04, 2024 Billing Provider: MAGDALENA DONOVAN MD Common Visit Codes: 09675-DPH/OBS DISCH DAY >30min MAGDALENA DONOVAN MD August 04, 2024 19:14
[2024-08-04 20:00] VITALS: O2SAT 98
[2024-08-04] MEDS: POTASSIUM CHLORIDE 40 MEQ, LIDOCAINE 1% (LOCAL ANESTH.) 4 ML in SODIUM CHL 0.9% 250 ML IV ONE (20:42)
[2024-08-04 21:00] VITALS: BP 142/68; PULSE 76; RESP 17; TEMP 97.7; O2SAT 98
[2024-08-05 01:00] VITALS: BP 154/72; PULSE 65; RESP 16; TEMP 97.6; O2SAT 98
[2024-08-05 05:00] VITALS: BP 149/62; PULSE 71; RESP 17; TEMP 97.3; O2SAT 97
[2024-08-05 06:17] LABS: Basophils # (auto) 0.1 10 ^3/uL (0-0.2); Basophils % (auto) 0.7 % (0.0-2.0); Eosinophils # (auto) 0.2 10 ^3/uL (0-0.8); Eosinophils % (auto) 2.9 % (0.0-7.0); Hematocrit 35.6 % (36.0-46.0); Hemoglobin 12.1 g/dL (12.2-16.2); Lymphocytes # (auto) 1.8 10 ^3/uL (0.4-5.4); Lymphocytes % (auto) 23.2 % (10.0-50.0); Mean Corpuscular Hgb Conc. 34.1 g/dL (32.0-36.0); Mean Corpuscular Volume 90.7 fL (80.0-100.0); Monocytes # (auto) 0.7 10 ^3/uL (0-1.3); Monocytes % (auto) 8.7 % (0.0-12.0); Neutrophils # (auto) 5.1 10 ^3/uL (1.6-8.6); Neutrophils % (auto) 64.5 % (37.0-80.0); Platelet Count (auto) 313 10^3/uL (140-450); Red Blood Cells 3.92 10^6/uL (4.0-5.20); Red Cell Distribution Width 15.3 % (11.8-14.3)
[2024-08-05 06:39] LABS: Albumin 3.2 g/dL (3.2-4.8); Alkaline Phosphatase 88 U/L (46-116); Anion Gap 8 (5-15); Aspartate Aminotransferase 23 U/L (13-40); Carbon Dioxide 27 mmol/L (20-31); Chloride 107 mmol/L (98-107); Glucose 78 mg/dL (74-106); Potassium 4.1 mmol/L (3.5-5.1); Sodium 142 mmol/L (136-145)
[2024-08-05 06:48] LABS: Alanine Aminotransferase 9 U/L (7-40); BUN/Creatinine Ratio 11.4 (10.0-20.0); Bilirubin, Total 0.3 mg/dL (0.2-1.0); Blood Urea Nitrogen < 5 mg/dL (9-23); Calcium 8.4 mg/dL (8.7-10.4); Total Protein 5.6 g/dL (5.7-8.2)
[2024-08-05 08:00] VITALS: O2SAT 98
[2024-08-05 08:20] VITALS: BP 150/80; PULSE 63; RESP 15; TEMP 97.5; O2SAT 95
[2024-08-05] MEDS: ENOXAPARIN SOD 30 MG/0.3 ML SYRINGE SC SCH (11:41)
[2024-08-05 12:00] VITALS: BP 140/68; PULSE 60; RESP 15; TEMP 97.4; O2SAT 98
[2024-08-05 14:20] VITALS: BP 114/51; PULSE 77; RESP 17; TEMP 36.4; O2SAT 95
== END 2024-08-05 16:00 | disposition hospice, home (50) | DRG 640 ==
LOC: EDBD 11:02 → ER 11:02 → OVERFLOW 15:04 → WEST WING 17:30
PROVIDERS: ADMIT Hospitalist; ATTEND Hospitalist
DX: R62.7 Adult failure to thrive (principal); E43 Unspecified severe protein-calorie malnutrition; R53.2 Functional quadriplegia; Z68.1 Body mass index [BMI] 19.9 or less, adult; M54.9 Dorsalgia, unspecified; Z74.01 Bed confinement status; Z88.2 Allergy status to sulfonamides; Z79.1 Long term (current) use of non-steroidal anti-inflammatories (NSAID); Z79.899 Other long term (current) drug therapy; E83.51 Hypocalcemia
CPT/HCPCS: 36415; 71045; 80048; 80053; 81001; 84484; 85025; 87086; 87088; 87186; 97163; G0378; J2003

== ENCOUNTER 2025-01-25 20:00 | Inpatient (IN) | payer OTHER, MEDICARE ==
[~2025-01-25] VITALS: Ht 153 cm; Wt 43.0 kg
[~2025-01-25 20:00] MED LIST changes: +APIX5TAB PO; +DRON400T PO; +LOSA-534 PO; +MET500T PO
[2025-01-25] MEDS: MORPHINE SULFATE INJ 2 MG/ml SYRG IV ONE (20:30)
[2025-01-25] MEDS: SODIUM CHLORIDE 0.9% 1,000 ML IV ONE ×2 (20:30→23:35)
--- NOTE | 2025-01-25 20:30 | ED.PDOC ---
History of Present Illness HPI Comments 84-year-old female who presents to the emergency department via EMS for generalized weakness. Patient was seen by her department earlier today after she slid from chair was unable to get up. At this time patient is reporting pain from her sacral wounds. She has no other complaints. Patient lives at home with her elderly disabled , has home health care. Patient is to be admitted to SNF next week. Past medical history includes atrial fibrillation, hypertension, hyperlipidemia, on Eliquis. REVIEW OF SYSTEMS: General: No fever, no chills, or fatigue HEENT: No sore throat, no earache, no congestion, no neck pain. Cardiac: No chest pain. No palpitations. Lungs: No shortness of breath, no cough. GI: No nausea, no vomiting, no diarrhea, no constipation, no abdominal pain : No dysuria, frequency, or urgency. No hematuria. Musculoskeletal: Painful sacral pressure ulcers Skin: No rash, no itching. Neuro: No headache, no dizziness, no weakness (And as sated in HPI) PHYSICAL EXAM: General: Awake, alert and oriented. No acute distress. Patient is thin, frail appearing. Skin: Skin in warm, dry and intact without rashes or lesions. HEENT: The head is normocephalic and atraumatic. Conjunctivae are clear without exudates or hemorrhage. Sclera is non-icteric. Neck: Normal range of motion. No JVD. Cardiac: Regular rate Respiratory: No signs of respiratory distress. No Stridor. Extremities: Erythematous, tender area over sacral bone. No purulent drainage. Neurological: The patient is awake, alert and oriented to person, place, and time with normal speech. Speech is clear. There is no facial asymmetry. Chief Complaint: General Weakness Time Seen by MD: 20:13 Primary Care Provider: UNKNOWN Allergies: Coded Allergies: Sulfa Antibiotics (Verified Allergy, Severe, 01/16/22) Home Meds Reported Medications Dronedarone Hydrochloride (Multaq) 400 Mg Tab, 1 TAB PO BID, #180 TAB 1 Refill 08/01/24 Apixaban Base (ELIQUIS) 5 Mg Tab, 5 MG PO BID, TAB 25 Metronidazole (Metronidazole) 500 Mg Tab, 500 MG PO, TAB 25 Losartan Potassium (Losartan Potassium) 50 Mg Tab, 50 MG PO DAILY for 30 Days, MG 525 Hctz (Hydrochlorothiazide) 25 Mg Tab, 12.5 MG PO DAILY, TAB 01/17/22 Alendronate Sodium (Alendronate Sodium) 70 Mg Tab, 1 TAB PO QWEEKLY, #4 TAB 3 Refills 01/17/22 Cyanocobalamin (Cyanocobalamin) Pow, 1 VIAL IM weekly, POW 01/17/22 Cholecalciferol (Vitamin D3 1.25 mg (14132 Ut)) 1 Cap Cap, 1 CAP PO Weekly, CAP 01/17/22 Acetaminophen (Acetaminophen) 325 Mg Tab, 500 MG PO Q6HP for pain for 30 Days, MG 0 Refills 01/17/22 Atenolol (Atenolol) 50 Mg Tab, 50 MG PO BID for 30 Days, MG 01/17/22 Levofloxacin Hemihydrate (LEVOFLOXACIN) 250 Mg Tab, 250 MG PO DAILY for 10 Days, MG 01/17/22 Nitrofurantoin Monohydrate Mac (Macrobid) 100 Mg Cap, 100 MG PO DAILY, CAP 01/17/22 Levothyroxine Sodium (Levothyroxine Sodium) 50 Mcg Tab, 100 MCG PO DAILY, TAB 01/17/22 Information Source: Patient, Emergency Med Personnel Mode of Arrival: EMS Past Medical History PAST MEDICAL HISTORY: Denies Surgical History: Denies all surgeries MACHINE [employer] History: No Pertinent MACHINE [employer] LASTER History Family History Family History: Reviewed,noncontributory to illness Social History Smoker: Non-Smoker Alcohol: Denies ETOH Use Drugs: Denies Drug Use Lives In: Home Was a procedure done? Was a procedure done?: No EKG EKG : Pulse Rate (adult): 65 [place]: Normal Cardiac Rhythm: NSR Block: None Hypertrophy: None ST: Normal Comments Prolonged QTC of 552 No STEMI Differential Dx Considerations may include: Differential diagnoses considered include but are not limited to sepsis, CVA, ACS, PE, stroke, ICH, adrenal insufficiency, viral syndrome, thyroid storm, myxedema coma , DKA, HHS, hypoglycemia, anemia, GI bleeding, renal failure, dehydration, hepatic failure, electrolyte imbalance, carbon monoxide poisoning, malignancy, UTI, other. X-Ray, Labs, Meds, VS Vital Signs Date Time Temp Pulse Resp B/P (MAP) Pulse Ox O2 Delivery O2 Flow Rate FiO2 01/25/25 23:03 65 01/25/25 22:55 65 01/25/25 22:00 98.4 83 20 188/67 (107) 97 98.4 01/25/25 20:51 100.7 68 20 185/60 (101) 98 100.7 01/25/25 20:51 68 20 98 Room Air* 0 21 01/25/25 20:30 68 20 185/60 01/25/25 20:16 86 01/25/25 20:14 100.7 88 20 185/92 97 100.7 Lab Test 01/25/25 20:49 Range/Units White Blood Count 6.8 4.4-10.8 10^3/uL Red Blood Count 4.25 4.0-5.20 10^6/uL Hemoglobin 13.0 12.2-16.2 g/dL Hematocrit 38.4 36.0-46.0 % Mean Corpuscular Volume 90.4 80.0-100.0 fL Mean Corpuscular Hemoglobin 30.5 28.0-32.0 pg Mean Corpuscular Hemoglobin Concent 33.8 32.0-36.0 g/dL Red Cell Distribution Width 15.5 H 11.8-14.3 % Platelet Count 319 140-450 10^3/uL Mean Platelet Volume 8.3 6.9-10.8 fL Neutrophils (%) (Auto) 75.8 37.0-80.0 % Lymphocytes (%) (Auto) 16.4 10.0-50.0 % Monocytes (%) (Auto) 6.1 0.0-12.0 % Eosinophils (%) (Auto) 0.8 0.0-7.0 % Basophils (%) (Auto) 0.9 0.0-2.0 % Neutrophils # (Auto) 5.2 1.6-8.6 10 ^3/uL Lymphocytes # (Auto) 1.1 0.4-5.4 10 ^3/uL Monocytes # (Auto) 0.4 0-1.3 10 ^3/uL Eosinophils # (Auto) 0.1 0-0.8 10 ^3/uL Basophils # (Auto) 0.1 0-0.2 10 ^3/uL Nucleated Red Blood Cells 0.0 % Sodium Level 141 136-145 mmol/L Potassium Level 3.4 L 3.5-5.1 mmol/L Chloride Level 100 98-107 mmol/L Carbon Dioxide Level 30 20-31 mmol/L Anion Gap 11 5-15 Blood Urea Nitrogen 17 9-23 mg/dL Creatinine 0.81 0.550-1.02 mg/dL Glomerular Filtration Rate Calc 71 >90 mL/min BUN/Creatinine Ratio 21.0 H 10.0-20.0 Serum Glucose 90 74-106 mg/dL Lactic Acid Level 1.3 0.4-2.0 mmol/L Calcium Level 9.0 8.7-10.4 mg/dL Total Bilirubin 0.4 0.2-1.0 mg/dL Aspartate Amino Transferase (AST) 25 13-40 U/L Alanine Aminotransferase (ALT) 13 7-40 U/L Alkaline Phosphatase 97 46-116 U/L Total Protein 6.4 5.7-8.2 g/dL Albumin 3.8 3.2-4.8 g/dL Current Medications Medications (Trade) Dose Ordered Sig/Manas Route Start Time Stop Time Status Last Admin Sodium Chloride 1,000 ml @ 130 mls/hr Q7H42M ONCE IV 01/25/25 20:30 01/26/25 04:11 DC 01/25/25 23:35 Sodium Chloride 1,000 ml @ 1,000 mls/hr Q1H ONCE IV 01/25/25 20:30 01/25/25 21:29 DC 01/25/25 20:30 Morphine Sulfate 2 mg ONCE ONCE IV 01/25/25 20:30 01/25/25 20:31 DC 01/25/25 20:30 [place] [address] Ph: [phone] DIAGNOSTIC IMAGING Diagnostic Imaging Report : [id number] Signed PATIENT: DAVY LEVINE ACCT: [id number] UNIT: [id number] : 1940 LOC: ER ROOM / BED: / AGE / SEX: 84 / F ADM STATUS: REG ER SERVICE 26 ORDERING PHYSICIAN: DAINA SCHUSTER MD PROCEDURE(s): CXR1 - CHEST XRAY 1 VIEW REASON: Suspected Sepsis ORDER NUMBER(s): [id number], ACCESSION NUMBER(s): [id number] CHEST RADIOGRAPH Indication: Suspected Sepsis Technique: 1 view Comparison: XY CHEST PORTABLE on DOS: 08/01/24 FINDINGS: Lines and Tubes: None. Lungs/Pleura: Mild basilar scarring/atelectasis. No acute consolidation, pleural effusion or pneumothorax. Cardiomediastinum: Normal heart size. Surgical clips redemonstrated along the superior thoracic trachea. Other: No acute osseous abnormality. Chronic left proximal humerus deformity. IMPRESSION: No acute cardiopulmonary abnormality or change from prior exam. ATED BY: LO HARDY MD DICTATED DATE/TIME: 01/25/252056 SIGNED BY: LO HARDY MD SIGNED DATE/TIME: 01/25/252056 CC: [place] [id number] Ph: [phone] DIAGNOSTIC IMAGING Diagnostic Imaging Report : [id number] Signed PATIENT: DAVY LEVINE ACCT: [id number] UNIT: [id number] : 1940 LOC: ER ROOM / BED: / AGE / SEX: 84 / F ADM STATUS: REG ER SERVICE 26 ORDERING PHYSICIAN: DAINA SCHUSTER MD PROCEDURE(s): PL2CT - PELVIS WO CONTRAST REASON: Sacral pressure wounds, rule out osteomyelitis ORDER NUMBER(s): [id number], ACCESSION NUMBER(s): [id number] EXAM: CT PELVIS WO CONTRAST INDICATION: Sacral pressure wounds, rule out osteomyelitis TECHNIQUE: Axial images of pelvis without contrast have been obtained along with coronal and sagittal reformatted images. All CT scans at this facility use dose modulation, iterative reconstruction, and/or weight based dosing when appropriate to reduce radiation dose to as low as reasonably achievable. COMPARISON: None FINDINGS: BONES: No CT evidence of an acute fracture or aggressive osseous lesion. limited evaluation secondary to distorted anatomy from altered imaging projection on the coronal and sagittal planes. No abnormal osseous erosion, lucency, sclerosis to suggest osteomyelitis. Suspected sacral decubitus ulcer at the level of the intergluteal cleft. No overlying or underlying drainable abscess. MUSCLES: Fatty atrophy of the intrinsic musculature JOINT SPACES: No joint effusion. TENDONS/LIGAMENTS: Intact. OTHER: Large amount of stool burden correlate for constipation. Correlate for fecal impaction. Mac catheter in the bladder. IMPRESSION: 1. No CT evidence of an acute fracture or aggressive osseous lesion. 2. No abnormal osseous erosion, lucency, sclerosis to suggest osteomyelitis. 3. Suspected sacral decubitus ulcer at the level of the intergluteal cleft. 4. No overlying or underlying drainable abscess. ATED BY: TUAN BARRIGA MD DICTATED DATE/TIME: 01/25/252123 SIGNED BY: TUAN BARRIGA MD SIGNED DATE/TIME: 01/25/252123 CC: Time of 1ST Reevaluation: 20:29 Reevaluation 1ST: Unchanged Patient Education/Counseling: Need For Follow Up Family Education/Counseling: No Family Present SEPSIS Sepsis Screen Date sepsis recognized/suspect: Jan 25, 2025 Time Sepsis recognized/suspect: 2007 Recent Procedure: No On Antibiotic Therapy: No Respiratory Rate >20: No Heart Rate >90: No Temp<36 C (96.8 F) or >38.3 C: Yes SBP <90 or MAP <65 mmHG: No New Acute Mental Status Change: No Is the patient on CPAP, BIPAP,: No Physician Orders Vital Signs Q1HR (01/25/25 20:27) Saline Lock (01/25/25 20:27) Branch Store Manager (01/25/25 ) Rectal/Core Temps Only (01/25/25 20:27) Notify Md If Abnormal Vs (01/25/25 20:27) Blood Culture (01/25/25 20:27) Chest Xray 1 View (01/25/25 20:27) Pelvis Wo Contrast (01/25/25 20:27) Straight Cath. (01/25/25 ) Vital Signs Date Time Temp Pulse Resp B/P (MAP) Pulse Ox O2 Delivery O2 Flow Rate FiO2 01/25/25 23:03 65 01/25/25 22:55 65 01/25/25 22:00 98.4 83 20 188/67 (107) 97 98.4 01/25/25 20:51 100.7 68 20 185/60 (101) 98 100.7 01/25/25 20:51 68 20 98 Room Air* 0 21 01/25/25 20:30 68 20 185/60 01/25/25 20:16 86 01/25/25 20:14 100.7 88 20 185/92 97 100.7 Laboratory Tests Test 01/25/25 20:49 Lactic Acid Level 1.3 mmol/L (0.4-2.0) White Blood Count 6.8 10^3/uL (4.4-10.8) Medications Medications Dose Ordered Sig/Manas Route Start Time Stop Time Status Last Admin Dose Admin Morphine Sulfate 2 mg ONCE ONCE IV 01/25/25 20:30 01/25/25 20:31 DC 01/25/25 20:30 Sodium Chloride 1,000 ml @ 130 mls/hr Q7H42M ONCE IV 01/25/25 20:30 01/26/25 04:11 DC 01/25/25 23:35 Sodium Chloride 1,000 ml @ 1,000 mls/hr Q1H ONCE IV 01/25/25 20:30 01/25/25 21:29 DC 01/25/25 20:30 Departure 1 Departure Time of Disposition: 23:05 Impression: Primary Impression: Generalized weakness Additional Impressions: Decubitus ulcer Unable to care for self Disposition: ADMITTED INPATIENT Condition: Stable Comments MDM: Patient admitted to hospitalist service for further treatment, evaluation and monitoring. Extensive evaluation was performed in attempt to identify or rule out: (See differential diagnosis section) The following tests were ordered, and results were reviewed by me and discussed with patient: (See diagnostic results section) The following test were independently interpreted by me: EKG, CBC, CMP, UA, la ctic acid reflux, blood cultures I reviewed and agreed with the following test results read by other providers: CT pelvis without contrast, chest x-ray I reviewed the following notes from the pt's past medical encounters: August 01, 2024 encounter for generalized weakness Additional information was gathered from interviewing the following independent historians: EMS personnel Decision regarding hospitalization or escalation of hospital level of care: Risk and benefits of admission for further treatment of patient's condition was considered. Due to patient's current clinical condition, high risk of decline and poor outcome if discharged and need for further inpatient management and monitoring, patient will be admitted to the hospital. Parenteral controlled substances: IV morphine Critical Care Note Critical Care Time?: No Stability Stability form required: No Heart Score Heart Score: Heart Score Response (Comments) Value History N/A 0 EKG N/A 0 Age N/A 0 Risk Factors N/A 0 Troponin N/A 0 Total 0 I personally scribed for DAINA SCHUSTER MD ([email or web address]) on 01/25/25 at 21:31. Electronically submitted by Vinicius Newman ([email or web address]). I personally scribed for DAINA SCHUSTER MD ([email or web address]) on 01/25/25 at 23:03. Electronically submitted by Vinicius Newman ([email or web address]). DAINA SCHUSTER MD Jan 25, 2025 20:30
--- NOTE | 2025-01-25 20:45 | ECG ---
[facility] Test Date: 2025-01-25 Test Time: 20:14:13 Pat Name: DAVY LEVINE Department: ED Room: 0295T Gender: F Stockbroker: SABINE : 1940 Requested By: DAINA SCHUSTER Order Number: [id number] Reading MD: Cristino Mazariegos Measurements Intervals [place] Rate: 84 P: 0 NM: 53 QRS: 60 QRSD: 93 T: 248 QT: 474 QTc: 561 Interpretive Statements Sinus tachycardia Ventricular tachycardia, unsustained Short NM interval Consider right atrial enlargement Abnormal R-wave progression, early transition Abnormal T, consider ischemia, diffuse leads Prolonged QT interval Artifact in lead(s) I,II,III,aVR,aVL,V1,V2,V3,V4,V5,V6 Electronically Signed On 01-26-2025 17:59:27 PST by Cristino Mazariegos Please click the below link to view image of tracing.
[2025-01-25 20:51] VITALS: PULSE 68; RESP 20; O2SAT 98
--- NOTE | 2025-01-25 20:59 | DVH ---
CHEST RADIOGRAPH Indication: Suspected Sepsis Technique: 1 view Comparison: XY CHEST PORTABLE on DOS: 08/01/24 FINDINGS: Lines and Tubes: None. Lungs/Pleura: Mild basilar scarring/atelectasis. No acute consolidation, pleural effusion or pneumothorax. Cardiomediastinum: Normal heart size. Surgical clips redemonstrated along the superior thoracic trachea. Other: No acute osseous abnormality. Chronic left proximal humerus deformity. IMPRESSION: No acute cardiopulmonary abnormality or change from prior exam.
[2025-01-25 21:10] LABS: Hematocrit 38.4 % (36.0-46.0); Hemoglobin 13.0 g/dL (12.2-16.2); Mean Corpuscular Hemoglobin 30.5 pg (28.0-32.0); Mean Corpuscular Volume 90.4 fL (80.0-100.0); Nucleated Red Blood Cells % 0.0 %
[2025-01-25 21:27] LABS: Alanine Aminotransferase 13 U/L (7-40); Albumin 3.8 g/dL (3.2-4.8); Alkaline Phosphatase 97 U/L (46-116); Anion Gap 11 (5-15); BUN/Creatinine Ratio 21.0 (10.0-20.0); Bilirubin, Total 0.4 mg/dL (0.2-1.0); Blood Urea Nitrogen 17 mg/dL (9-23); Calcium 9.0 mg/dL (8.7-10.4); Carbon Dioxide 30 mmol/L (20-31); Chloride 100 mmol/L (98-107); Glucose 90 mg/dL (74-106); Sodium 141 mmol/L (136-145); Total Protein 6.4 g/dL (5.7-8.2)
--- NOTE | 2025-01-25 21:27 | DVH ---
EXAM: CT PELVIS WO CONTRAST INDICATION: Sacral pressure wounds, rule out osteomyelitis TECHNIQUE: Axial images of pelvis without contrast have been obtained along with coronal and sagittal reformatted images. All CT scans at this facility use dose modulation, iterative reconstruction, and/or weight based dosing when appropriate to reduce radiation dose to as low as reasonably achievable. COMPARISON: None FINDINGS: BONES: No CT evidence of an acute fracture or aggressive osseous lesion. limited evaluation secondary to distorted anatomy from altered imaging projection on the coronal and sagittal planes. No abnormal osseous erosion, lucency, sclerosis to suggest osteomyelitis. Suspected sacral decubitus ulcer at the level of the intergluteal cleft. No overlying or underlying drainable abscess. MUSCLES: Fatty atrophy of the intrinsic musculature JOINT SPACES: No joint effusion. TENDONS/LIGAMENTS: Intact. OTHER: Large amount of stool burden correlate for constipation. Correlate for fecal impaction. Mac catheter in the bladder. IMPRESSION: 1. No CT evidence of an acute fracture or aggressive osseous lesion. 2. No abnormal osseous erosion, lucency, sclerosis to suggest osteomyelitis. 3. Suspected sacral decubitus ulcer at the level of the intergluteal cleft. 4. No overlying or underlying drainable abscess.
[2025-01-25 21:28] LABS: Potassium 3.4 mmol/L (3.5-5.1)
--- NOTE | 2025-01-25 23:56 | DVHHP2 ---
Admitting Diagnosis: generalized weakness History of Present Illness 84-year-old female who presents to the emergency department via EMS for generalized weakness. Patient was seen by her department earlier today after she slid from chair was unable to get up. At this time patient is reporting pain from her sacral wounds. She has no other complaints. Patient lives at home with her elderly disabled , has home health care. Patient is to be admitted to SNF next week. While in the emergency department the patient was evaluated by the provider, As per provider: Labs, vital signs, and imagining monitored. Patient will be admitted for further evaluation and treatment. I discussed admission with the patient/family and is in agreement to treatment plan Patient Family History: FH: leukemia G8 MOTHER Allergies: Coded Allergies: Sulfa Antibiotics (Verified Allergy, Severe, 01/16/22) Home Meds Reported Medications Dronedarone Hydrochloride (Multaq) 400 Mg Tab, 1 TAB PO BID, #180 TAB 1 Refill 08/01/24 Apixaban Base (ELIQUIS) 5 Mg Tab, 5 MG PO BID, TAB 08/01/24 Metronidazole (Metronidazole) 500 Mg Tab, 500 MG PO, TAB 08/01/24 Losartan Potassium (Losartan Potassium) 50 Mg Tab, 50 MG PO DAILY for 30 Days, MG 08/01/24 Hctz (Hydrochlorothiazide) 25 Mg Tab, 12.5 MG PO DAILY, TAB 01/17/22 Alendronate Sodium (Alendronate Sodium) 70 Mg Tab, 1 TAB PO QWEEKLY, #4 TAB 3 Refills 01/17/22 Cyanocobalamin (Cyanocobalamin) Pow, 1 VIAL IM weekly, POW 01/17/22 Cholecalciferol (Vitamin D3 1.25 mg (29680 Ut)) 1 Cap Cap, 1 CAP PO Weekly, CAP 01/17/22 Acetaminophen (Acetaminophen) 325 Mg Tab, 500 MG PO Q6HP for pain for 30 Days, MG 0 Refills 01/17/22 Atenolol (Atenolol) 50 Mg Tab, 50 MG PO BID for 30 Days, MG 01/17/22 Levofloxacin Hemihydrate (LEVOFLOXACIN) 250 Mg Tab, 250 MG PO DAILY for 10 Days, MG 01/17/22 Nitrofurantoin Monohydrate Mac (Macrobid) 100 Mg Cap, 100 MG PO DAILY, CAP 01/17/22 Levothyroxine Sodium (Levothyroxine Sodium) 50 Mcg Tab, 100 MCG PO DAILY, TAB 01/17/22 Current Medications Current Medications Medications (Trade) Dose Ordered Sig/Manas Route PRN Reason Start Time Stop Time Status Last Admin Acetaminophen/ Hydrocodone Bitart ([place] 5/325MG Tab) 1 tab Q4HP PRN PO MODERATE PAIN (4-6 PAIN SCALE) 01/26/25 00:00 Temazepam (Restoril) 15 mg QHSP PRN PO FOR INSOMNIA 01/26/25 00:00 Ondansetron HCl (Zofran) 4 mg Q4HP PRN IV NAUSEA / VOMITING 01/26/25 00:00 01/26/25 00:34 DC Acetaminophen (Tylenol Tablet) 650 mg Q6HP PRN PO PAIN SCALE 1-3 OR TEMP>100.4 01/26/25 00:00 Morphine Sulfate 2 mg Q4HPRN PRN IV SEVERE PAIN (7-10 PAIN SCALE) 01/26/25 00:00 Nitroglycerin (Ntrostat Sublingual) 0.4 mg Q5MINP PRN SL FOR CHEST PAIN 01/26/25 00:00 Morphine Sulfate 2 mg Q30M PRN IV FOR CHEST PAIN 01/26/25 00:00 Apixaban (Eliquis) 2.5 mg BID PO 01/26/25 10:00 01/26/25 11:10 Levothyroxine Sodium (Synthroid Tablet) 100 mcg DAILY@0700 PO 01/26/25 07:00 01/26/25 06:29 Losartan Potassium (Cozaar Tablet) 50 mg DAILY PO 01/26/25 10:00 01/26/25 11:11 Atenolol (Tenormin Tablet) 50 mg BID PO 01/26/25 10:00 01/26/25 11:12 Patient Own Medication 1 tab BID PO 01/26/25 10:00 01/26/25 02:27 DC Hydralazine HCl (Apresoline Injection) 10 mg Q8HP PRN IV SBP>150 01/26/25 00:00 Prochlorperazine Edisylate (Compazine Inj) 5 mg Q4HPRN PRN IV NAUSEA / VOMITING 01/26/25 00:45 Dronedarone (MulTAQ) 400 mg BID PO 01/26/25 10:00 Piperacillin Sod/ Tazobactam Sod 100 ml @ 25 mls/hr Q8HR IV 01/26/25 14:00 01/26/25 15:18 Famotidine (Pepcid Tablet) 20 mg DAILY PO 01/27/25 10:00 Review of Systems Constitutional: denies chills, denies fever, denies malaise Eyes: denies eye pain, denies vision change ENT: denies ear pain, denies headache, denies nasal congestion, denies painful swallowing, denies voice change Cardiovascular: denies chest pain, denies edema, denies orthopnea, denies palpitations, denies paroxysmal nocturnal dyspnea Respiratory: denies cough, denies shortness of breath Gastrointestinal: denies constipation, denies diarrhea, denies nausea, denies vomiting Genitourinary: denies dysuria, denies frequent urination, denies urethral discharge Musculoskeletal: denies back pain, denies joint pain, denies muscle pain Skin: denies bruising, denies itching, denies rash Neurological: denies focal weakness, denies headache, denies sensory changes Psychiatric: denies anxiety, denies depression Endocrine: denies polydipsia, denies polyuria Hematologic/Lymphatic: denies easy bleeding, denies easy bruising, denies enlarged lymph nodes Allergic/Immunologic: denies allergy, denies hives Vital Signs Vital Signs Date Time Temp Pulse Resp B/P (MAP) Pulse Ox O2 Delivery O2 Flow Rate FiO2 01/26/25 17:49 97.3 50 20 145/51 (82) 96 97.3 01/26/25 17:48 Room Air* 0 21 Physical Exam General Appearance: alert, no distress HEENT: EOMI, PERRLA, normal external inspect of ears, no icterus, no nasal drainage Neck: no carotid bruit, no jugular venous distention (JVD), no lymphadenopathy Chest: normal thorax Respiratory: clear to auscultation, normal air movement Cardiovascular: regular rate and rhythm, no diastolic murmur, no jugular venous distention (JVD), no rub, no systolic murmur Abdominal: soft, no hepatomegaly, no mass, no splenomegaly, no tenderness Genitourinary: grossly normal external Musculoskeletal: no joint tenderness, no swelling Extremities: normal pulses, no calf tenderness, no clubbing, no cyanosis, no edema Skin: no bruising, no jaundice, no rash Neurological: alert, No focal deficit SEPSIS Sepsis Screen Date sepsis recognized/suspect: Jan 25, 2025 Time Sepsis recognized/suspect: 2029 Recent Procedure: No On Antibiotic Therapy: Yes Respiratory Rate >20: No Heart Rate >90: No Temp<36 C (96.8 F) or >38.3 C: No SBP <90 or MAP <65 mmHG: No New Acute Mental Status Change: No Is the patient on CPAP, BIPAP,: No Physician Orders Vital Signs Q1HR (01/25/25 20:27) Saline Lock (01/25/25 20:27) Rfid Engineer (01/25/25 ) Rectal/Core Temps Only (01/25/25:) Notify Md If Abnormal Vs (01/25/25:) Blood Culture (01/25/25:) Chest Xray 1 View (01/25/25:27) Pelvis Wo Contrast (01/25/25 20:) Electrocardigram (01/25/25 20:42) Straight Cath. (01/25/25 ) Admit (01/25/25 23:53) Code Status (01/25/25 23:53) 2 Gm Sodium Diet (01/26/25 Breakfast) Hydrocodone-Acet 5/325mg Tab ([place] 5/32 (01/26/25 00:00) Temazepam (Restoril) (01/26/25 00:00) Condition: Fair (01/25/25 23:53) Acetaminophen Tablet (Tylenol Tablet) (01/26/25 00:00) Morphine Sulfate Injection (01/26/25 00:00) Nitroglycerin Sublingual (Ntrostat Subli (01/26/25 00:00) Morphine Sulfate Injection (01/26/25 00:00) Stat Ekg For Chest Pain (01/25/25 23:53) Notify Md Of Changes From Base (01/25/25 23:53) Agency Recruiter For 24 Hours (01/25/25 23:53) Emergency Dysrhythmia Protocol (01/25/25 23:53) Rhythm Strips Once Every Shift (01/25/25 23:53) Oxygen By Nasal Cannula (01/25/25 23:53) Levothyroxine Tablet (Synthroid Tablet) (01/26/25 07:00) Losartan Tablet (Cozaar Tablet) (01/26/25 10:00) Atenolol Tablet (Tenormin Tablet) (01/26/25 10:00) Hydralazine Injection (Apresoline Inject (01/26/25 00:00) Apixaban (Eliquis) (01/26/25 10:00) Prochlorperazine Inj (Compazine Inj) (01/26/25 00:45) Dronedarone Hydrochloride (Multaq) (01/26/25 10:00) * Wound Consult (01/26/25 ) Piperacillin-Tazob 3.375gm (Zosyn 3.375g (01/26/25 14:00) * Power Press Supervisor Consult (01/26/25 ) Famotidine Tablet (Pepcid Tablet) (01/27/25 10:00) Electrocardigram (01/26/25 13:30) Electrocardigram (01/26/25 14:30) Vital Signs Date Time Temp Pulse Resp B/P (MAP) Pulse Ox O2 Delivery O2 Flow Rate FiO2 01/26/25 17:49 97.3 50 20 145/51 (82) 96 97.3 01/26/25 17:48 Room Air* 0 21 01/26/25 12:17 54 01/26/25 11:12 83 153/64 01/26/25 11:11 153/64 01/26/25 08:00 98.0 64 16 151/59 (89) 98 98.0 01/26/25 08:00 Room Air* 0 21 01/26/25 08:00 62 01/26/25 06:00 66 13 144/61 (88) 99 01/26/25 04:00 58 01/26/25 04:00 58 16 144/51 (82) 97 01/26/25 02:00 98.2 63 11 159/58 (91) 97 98.2 01/26/25 00:00 98.2 60 17 136/46 (76) 96 98.2 01/25/25 23:03 65 01/25/25 22:55 65 01/25/25 22:00 98.4 83 20 188/67 (107) 97 98.4 01/25/25 20:51 100.7 68 20 185/60 (101) 98 100.7 01/25/25 20:51 68 20 98 Room Air* 0 21 01/25/25 20:30 68 20 185/60 01/25/25 20:16 86 01/25/25 20:14 100.7 88 20 185/92 97 100.7 Laboratory Tests Test 01/25/25 20:49 Lactic Acid Level 1.3 mmol/L (0.4-2.0) White Blood Count 6.8 10^3/uL (4.4-10.8) Medications Medications Dose Ordered Sig/Manas Route Start Time Stop Time Status Last Admin Dose Admin Apixaban 2.5 mg BID PO 01/26/25 10:00 01/26/25 11:10 Atenolol 50 mg BID PO 01/26/25 10:00 01/26/25 11:12 Losartan Potassium 50 mg DAILY PO 01/26/25 10:00 01/26/25 11:11 Piperacillin Sod/ Tazobactam Sod 100 ml @ 25 mls/hr Q8HR IV 01/26/25 14:00 01/26/25 15:18 Results Labs Test 01/26/25 12:17 01/26/25 03:00 01/25/25 20:49 Range/Units Sodium Level 142 136-145 mmol/L Potassium Level 3.4 L 3.5-5.1 mmol/L Chloride Level 103 98-107 mmol/L Carbon Dioxide Level 31 20-31 mmol/L Anion Gap 8 5-15 Blood Urea Nitrogen 11 9-23 mg/dL Creatinine 0.58 0.550-1.02 mg/dL Glomerular Filtration Rate Calc 89 >90 mL/min BUN/Creatinine Ratio 19.0 10.0-20.0 Serum Glucose 99 74-106 mg/dL Calcium Level 8.5 L 8.7-10.4 mg/dL Urine Color Light-yellow Yellow Urine Clarity Turbid H Clear Urine pH 6.0 5.0-9.0 Urine Specific [place] 1.016 1.001-1.035 Urine Protein Negative Negative Urine Ketones Trace Negative Urine Blood 3+ H Negative /uL Urine Nitrite Negative Negative Urine Bilirubin Negative Negative Urine Urobilinogen Normal Negative mg/dL Urine Leukocyte Esterase 2+ Negative /uL Urine RBC 56 0 - 4 /hpf Urine Microscopic WBC 62 H 0-5 /HPF Urine Squamous Epithelial Cells Few <5 /hpf Urine Calcium Oxalate Crystals Few None Seen Urine Bacteria None seen None Seen /hpf Urine Mucus Few None Seen Urine Glucose Normal Normal mg/dL White Blood Count 6.8 4.4-10.8 10^3/uL Red Blood Count 4.25 4.0-5.20 10^6/uL Hemoglobin 13.0 12.2-16.2 g/dL Hematocrit 38.4 36.0-46.0 % Mean Corpuscular Volume 90.4 80.0-100.0 fL Mean Corpuscular Hemoglobin 30.5 28.0-32.0 pg Mean Corpuscular Hemoglobin Concent 33.8 32.0-36.0 g/dL Red Cell Distribution Width 15.5 H 11.8-14.3 % Platelet Count 319 140-450 10^3/uL Mean Platelet Volume 8.3 6.9-10.8 fL Neutrophils (%) (Auto) 75.8 37.0-80.0 % Lymphocytes (%) (Auto) 16.4 10.0-50.0 % Monocytes (%) (Auto) 6.1 0.0-12.0 % Eosinophils (%) (Auto) 0.8 0.0-7.0 % Basophils (%) (Auto) 0.9 0.0-2.0 % Neutrophils # (Auto) 5.2 1.6-8.6 10 ^3/uL Lymphocytes # (Auto) 1.1 0.4-5.4 10 ^3/uL Monocytes # (Auto) 0.4 0-1.3 10 ^3/uL Eosinophils # (Auto) 0.1 0-0.8 10 ^3/uL Basophils # (Auto) 0.1 0-0.2 10 ^3/uL Nucleated Red Blood Cells 0.0 % Lactic Acid Level 1.3 0.4-2.0 mmol/L Total Bilirubin 0.4 0.2-1.0 mg/dL Aspartate Amino Transferase (AST) 25 13-40 U/L Alanine Aminotransferase (ALT) 13 7-40 U/L Alkaline Phosphatase 97 46-116 U/L Total Protein 6.4 5.7-8.2 g/dL Albumin 3.8 3.2-4.8 g/dL Microbiology Date/Time Source Procedure Growth Status 01/25/25 20:53 Blood Blood Culture - Preliminary NO GROWTH AFTER 24 HOURS OF INCUBATION. Resulted Plan 1. Chronic decubitus ulcers Monitor, IV antibiotics, wound care consult, director of social work consult 2. HLD Monitor 3. Paroxysmal atrial fibrillation Monitor, DVT prophylaxis, monitor on EKG 4. Chronic anticoagulation Monitor, DVT prophylaxis, PPI 5. Hypothyroid Monitor, TSH level Plan discussed with: Patient, Other MARIXA CHAUDHARI NP Jan 25, 2025 23:56
[2025-01-26] MEDS ORDERED: ACETAMINOPHEN 325 MG TAB PO PRN
[2025-01-26] MEDS ORDERED: HYDROcodone-ACET 5/325MG TAB PO PRN
[2025-01-26] MEDS ORDERED: ONDANSETRON HCL 4 MG/2 ML VIAL IV PRN
[2025-01-26] MEDS ORDERED: MORPHINE SULFATE INJ 2 MG/ml SYRG IV PRN ×2
[2025-01-26] MEDS ORDERED: hydrALAZINE HCL 20 MG/ML VL IV PRN
[2025-01-26] MEDS ORDERED: NITROGLYCERIN 0.4 MG SL TAB SL PRN
[2025-01-26] MEDS ORDERED: PROCHLORPERAZINE EDISYLATE 5 MG/ML 2ML VIAL IV PRN (00:45)
[2025-01-26] MEDS: POTASSIUM CHL 20MEQ/100ML 100 ML IV ONE (02:30)
[2025-01-26 03:45] LABS: Urine Protein, UAD Negative (Negative)
[2025-01-26] MEDS: LEVOTHYROXINE SODIUM 50 MCG TAB PO SCH (06:29)
[2025-01-26] MEDS ORDERED: PATIENTS OWN MEDICATION (Dronedarone Hydrochloride (Multaq) 1 TAB) PO SCH (10:00)
[2025-01-26] MEDS: APIXABAN 2.5 MG TAB PO SCH (11:10)
[2025-01-26] MEDS: LOSARTAN POTASSIUM 50 MG TAB PO SCH (11:11)
[2025-01-26] MEDS: ATENOLOL 25 MG TAB PO SCH (11:12)
[2025-01-26 12:52] LABS: Chloride 103 mmol/L (98-107); Sodium 142 mmol/L (136-145)
[2025-01-26 12:53] LABS: Anion Gap 8 (5-15); Carbon Dioxide 31 mmol/L (20-31)
[2025-01-26 12:55] LABS: Calcium 8.5 mg/dL (8.7-10.4); Potassium 3.4 mmol/L (3.5-5.1)
[2025-01-26 12:58] LABS: BUN/Creatinine Ratio 19.0 (10.0-20.0); Blood Urea Nitrogen 11 mg/dL (9-23); Glucose 99 mg/dL (74-106)
[2025-01-26] MEDS: DRONEDARONE HCL 400 MG TAB PO SCH (13:00)
--- NOTE | 2025-01-26 13:33 | ECG ---
[facility] Test Date: 2025-01-25 Test Time: 20:16:08 Pat Name: DAVY LEVINE Department: ED Room: 0295T Gender: F Grain Distributor: SABINE : 1940 Requested By: DAINA SCHUSTER Order Number: [id number] Reading MD: Cristino Mazariegos Measurements Intervals [place] Rate: 86 P: 38 OK: 151 QRS: 40 QRSD: 104 T: 242 QT: 451 QTc: 540 Interpretive Statements Sinus rhythm Consider right atrial enlargement Abnormal R-wave progression, early transition Repol abnrm suggests ischemia, diffuse leads Prolonged QT interval Electronically Signed On 01-26-2025 17:59:29 PST by Cristino Mazariegos Please click the below link to view image of tracing.
--- NOTE | 2025-01-26 13:33 | ECG ---
[facility] Test Date: 2025-01-25 Test Time: 22:55:10 Pat Name: DAVY LEVINE Department: ED Room: 0295T Gender: F Surgical Nurse: SABINE : 1940 Requested By: DAINA SCHUSTER Order Number: [id number] Reading MD: Cristino Mazariegos Measurements Intervals [place] Rate: 65 P: 76 MO: 165 QRS: 45 QRSD: 100 T: -90 QT: 530 QTc: 552 Interpretive Statements Sinus rhythm Borderline repolarization abnormality Prolonged QT interval Baseline wander in lead(s) V6 Electronically Signed On 01-26-2025 17:59:53 PST by Cristino Mazariegos Please click the below link to view image of tracing.
[2025-01-26] MEDS: PIPERACILLIN-TAZOB 3.375GM 100 ML IV SCH (15:18)
[2025-01-26 17:49] VITALS: BP 145/51; PULSE 50; RESP 20; TEMP 97.3; O2SAT 96
[2025-01-26 20:00] VITALS: PULSE 56
[2025-01-26 20:28] VITALS: BP 128/62; PULSE 52; RESP 18; TEMP 98.6; O2SAT 97
[2025-01-26 21:00] VITALS: BP 128/62; PULSE 52; RESP 18; TEMP 97.6; O2SAT 97
--- NOTE | 2025-01-26 21:32 | DVHPN2 ---
Progress Note - Dictate Date Seen: Jan 26, 2025 Medical Necessity Reason Pt with a Central, PICC or Fol: No vital signs Vital Sign Date Time Temp Pulse Resp B/P (MAP) Pulse Ox O2 Delivery O2 Flow Rate FiO2 01/26/25 17:49 97.3 50 20 145/51 (82) 96 97.3 01/26/25 17:48 Room Air* 0 21 Total Intake and Output 01/25/25 01/25/25 01/26/25 15:00 23:00 07:00 Intake Total 390 ml Balance 390 ml medications Current Medications Medications Dose Ordered Sig/Manas Route Start Time Stop Time Status Last Admin Dose Admin Acetaminophen/ Hydrocodone Bitart 1 tab Q4HP PRN PO 01/26/25 00:00 Temazepam 15 mg QHSP PRN PO 01/26/25 00:00 Acetaminophen 650 mg Q6HP PRN PO 01/26/25 00:00 Morphine Sulfate 2 mg Q4HPRN PRN IV 01/26/25 00:00 Nitroglycerin 0.4 mg Q5MINP PRN SL 01/26/25 00:00 Morphine Sulfate 2 mg Q30M PRN IV 01/26/25 00:00 Apixaban 2.5 mg BID PO 01/26/25 10:00 01/26/25 11:10 Levothyroxine Sodium 100 mcg DAILY@0700 PO 01/26/25 07:00 01/26/25 06:29 Losartan Potassium 50 mg DAILY PO 01/26/25 10:00 01/26/25 11:11 Atenolol 50 mg BID PO 01/26/25 10:00 01/26/25 11:12 Hydralazine HCl 10 mg Q8HP PRN IV 01/26/25 00:00 Prochlorperazine Edisylate 5 mg Q4HPRN PRN IV 01/26/25 00:45 Dronedarone 400 mg BID PO 01/26/25 10:00 Piperacillin Sod/ Tazobactam Sod 100 ml @ 25 mls/hr Q8HR IV 01/26/25 14:00 01/26/25 15:18 Famotidine 20 mg DAILY PO 01/27/25 10:00 laboratory and microbiology Laboratory Tests 01/26/25 12:17 01/25/25 20:49 Test 01/26/25 12:17 Range/Units Serum Glucose 99 74-106 mg/dL Problem List 1. Chronic decubitus ulcers Monitor, IV antibiotics, wound care consult, social media marketing specialist consult 2. HLD Monitor 3. Paroxysmal atrial fibrillation Monitor, DVT prophylaxis, monitor on EKG 4. Chronic anticoagulation Monitor, DVT prophylaxis, PPI 5. Hypothyroid Monitor, TSH level Assessment/Plan Subjective Patient is awake and alert Objective Patient is lethargic. Patient was with her . She states they are both very weak and they are supposed to be moving to an assisted facility for hospice next week. Patient has chronic decubitus ulcers. She is bedbound. Plan Continue current treatment. director of housing and energy services consult. Wound care evaluation. Continue antibiotics. Plan discussed with: Patient, Other MARIXA CHAUDHARI NP Jan 26, 2025 21:32
[2025-01-27] VITALS (7 sets, daily range): BP systolic 104–148; BP diastolic 51–64; PULSE 45–54; RESP 16–18; TEMP 97.4–97.6; O2SAT 95–99
[2025-01-27] MEDS: FAMOTIDINE 20 MG TAB PO SCH (09:58)
[2025-01-27] MEDS ORDERED: CEPH500C PO (11:19)
--- NOTE | 2025-01-27 11:21 | DVHDS2 ---
Discharge Summary Date of Admission Jan 25, 2025 at 23:53 Date of Discharge: Jan 27, 2025 Labs/Diagnostic Data: Laboratory Results Test 01/26/25 12:17 01/26/25 03:00 01/25/25 20:49 Sodium Level 142 mmol/L (136-145) Potassium Level 3.4 mmol/L (3.5-5.1) Chloride Level 103 mmol/L (98-107) Carbon Dioxide Level 31 mmol/L (20-31) Anion Gap 8 (5-15) Blood Urea Nitrogen 11 mg/dL (9-23) Creatinine 0.58 mg/dL (0.550-1.02) Glomerular Filtration Rate Calc 89 mL/min (>90) BUN/Creatinine Ratio 19.0 (10.0-20.0) Serum Glucose 99 mg/dL (74-106) Calcium Level 8.5 mg/dL (8.7-10.4) Urine Color Light-yellow (Yellow) Urine Clarity Turbid (Clear) Urine pH 6.0 (5.0-9.0) Urine Specific [place] 1.016 (1.001-1.035) Urine Protein Negative (Negative) Urine Ketones Trace (Negative) Urine Blood 3+ /uL (Negative) Urine Nitrite Negative (Negative) Urine Bilirubin Negative (Negative) Urine Urobilinogen Normal mg/dL (Negative) Urine Leukocyte Esterase 2+ /uL (Negative) Urine RBC 56 /hpf (0 - 4) Urine Microscopic WBC 62 /HPF (0-5) Urine Squamous Epithelial Cells Few /hpf (<5) Urine Calcium Oxalate Crystals Few (None Seen) Urine Bacteria None seen /hpf (None Seen) Urine Mucus Few (None Seen) Urine Glucose Normal mg/dL (Normal) White Blood Count 6.8 10^3/uL (4.4-10.8) Red Blood Count 4.25 10^6/uL (4.0-5.20) Hemoglobin 13.0 g/dL (12.2-16.2) Hematocrit 38.4 % (36.0-46.0) Mean Corpuscular Volume 90.4 fL (80.0-100.0) Mean Corpuscular Hemoglobin 30.5 pg (28.0-32.0) Mean Corpuscular Hemoglobin Concent 33.8 g/dL (32.0-36.0) Red Cell Distribution Width 15.5 % (11.8-14.3) Platelet Count 319 10^3/uL (140-450) Mean Platelet Volume 8.3 fL (6.9-10.8) Neutrophils (%) (Auto) 75.8 % (37.0-80.0) Lymphocytes (%) (Auto) 16.4 % (10.0-50.0) Monocytes (%) (Auto) 6.1 % (0.0-12.0) Eosinophils (%) (Auto) 0.8 % (0.0-7.0) Basophils (%) (Auto) 0.9 % (0.0-2.0) Neutrophils # (Auto) 5.2 10 ^3/uL (1.6-8.6) Lymphocytes # (Auto) 1.1 10 ^3/uL (0.4-5.4) Monocytes # (Auto) 0.4 10 ^3/uL (0-1.3) Eosinophils # (Auto) 0.1 10 ^3/uL (0-0.8) Basophils # (Auto) 0.1 10 ^3/uL (0-0.2) Nucleated Red Blood Cells 0.0 % Lactic Acid Level 1.3 mmol/L (0.4-2.0) Total Bilirubin 0.4 mg/dL (0.2-1.0) Aspartate Amino Transferase (AST) 25 U/L (13-40) Alanine Aminotransferase (ALT) 13 U/L (7-40) Alkaline Phosphatase 97 U/L (46-116) Total Protein 6.4 g/dL (5.7-8.2) Albumin 3.8 g/dL (3.2-4.8) Other Laboratory Tests 01/26/25 12:17 01/25/25 20:49 Brief Hx & Hospital Course: 84-year-old female who presents to the emergency department via EMS for generalized weakness. Patient was seen by her department earlier today after she slid from chair was unable to get up. At this time patient is reporting pain from her sacral wounds. She has no other complaints. Patient lives at home with her elderly disabled , has home health care. Patient is to be admitted to SNF next week. Patient was admitted on January 25, 2025, for generalized weakness. Patient was previously on hospice. Labs appear to be stable. She does have 2 decubitus ulcers to her coccyx. Patient was started on generalized antibiotics. No fever was noted. Patient was assessed by wound care. Patient was seen by social welfare research worker. She requested to discharge back on hospice services and antibiotics were sent to her pharmacy. Patient stated she felt better with IV hydration and antibiotics. The patient received proper medical treatment and medications. Vital signs, Imaging and Laboratory Work was monitored daily. All consults recommendations were followed as provided. There were no complaints or new complaints upon discharge, all questions and concerns were answered. Patient was advised to return to the ER or call 911 if any headaches, dizziness, shortness of breath, chest pain, bleeding, fevers, or worsening of medical condition. Patient/Family was counseled about treatment plan, medications, possible side effects, patient verbalized understanding. All questions were answered to the best of my ability. The patient symptoms improved and they are okay to be DC. Condition at Discharge: Stable Final Diagnosis/Problems List Gen weakness bedbound Chronic decubitus ulcers HLD Paroxysmal atrial fibrillation Chronic anticoagulation Hypothyroid Discharge Disposition: Hospice - Home Discharge Instruct/Medications Diet: Regular Activity: No Restrictions, As Tolerated Follow Up/Referral: hospice Scheduled Acetaminophen (Acetaminophen), 500 MG PO Q6HP, (Reported) Alendronate Sodium (Alendronate Sodium), 1 TAB PO QWEEKLY, (Reported) Apixaban Base (Eliquis), 5 MG PO BID, (Reported) Atenolol (Atenolol), 50 MG PO BID, (Reported) Cephalexin Monohydrate (Cephalexin), 1 CAP PO BID Cholecalciferol (Vitamin D3 1.25 mg (87723 Ut)), 1 CAP PO Weekly, (Reported) Cyanocobalamin (Cyanocobalamin), 1 VIAL IM weekly, (Reported) Dronedarone Hydrochloride (Multaq), 1 TAB PO BID, (Reported) Hctz (Hydrochlorothiazide), 12.5 MG PO DAILY, (Reported) Levofloxacin Hemihydrate (Levofloxacin), 250 MG PO DAILY, (Reported) Levothyroxine Sodium (Levothyroxine Sodium), 100 MCG PO DAILY, (Reported) Losartan Potassium (Losartan Potassium), 50 MG PO DAILY, (Reported) Nitrofurantoin Monohydrate Mac (Macrobid), 100 MG PO DAILY, (Reported) Miscellaneous Medications Metronidazole (Metronidazole), 500 MG PO, (Reported) Discharge Statement: "Patient was advised to return to the ER or call 911 if any headaches, dizziness, shortness of breath, chest pain, abdominal pain, bleeding, fevers, or worsening of medical condition. Patient was counseled about treatment plan, medications, possible side effects, patientverbalized understanding. All questions were answered to the best of my ability. This discharge took greater then 30 minutes in planning, reviewing documentation, counseling the patient, and discussing with other team members." ASSESSMENT ASSESSMENT Assessment Gen weakness decubitus ulcers bedbound MARIXA CHAUDHARI EGG CRATER Jan 27, 2025 11:21
[2025-01-27] MEDS: TEMAZEPAM 15 MG CAP PO PRN (23:01)
[2025-01-28] VITALS (8 sets, daily range): BP systolic 95–145; BP diastolic 46–70; PULSE 48–66; RESP 15–17; TEMP 36.4; O2SAT 96–99
--- NOTE | 2025-01-28 21:04 | DVHPN2 ---
Progress Note - Dictate Date Seen: Jan 27, 2025 Medical Necessity Reason Pt with a Central, PICC or Fol: No vital signs Vital Sign Date Time Temp Pulse Resp B/P (MAP) Pulse Ox O2 Delivery O2 Flow Rate FiO2 01/28/25 20:35 98.4 66 17 95/46 (62) 96 98.4 01/28/25 08:00 Room Air* 0 21 Total Intake and Output 01/27/25 01/27/25 01/28/25 14:59 22:59 06:59 Intake Total 500 ml 340 ml Output Total 300 ml 200 ml Balance 200 ml 140 ml medications Current Medications Medications Dose Ordered Sig/Manas Route Start Time Stop Time Status Last Admin Dose Admin Acetaminophen/ Hydrocodone Bitart 1 tab Q4HP PRN PO 01/26/25 00:00 Temazepam 15 mg QHSP PRN PO 01/26/25 00:00 01/27/25 23:01 15 MG Acetaminophen 650 mg Q6HP PRN PO 01/26/25 00:00 Morphine Sulfate 2 mg Q4HPRN PRN IV 01/26/25 00:00 Nitroglycerin 0.4 mg Q5MINP PRN SL 01/26/25 00:00 Morphine Sulfate 2 mg Q30M PRN IV 01/26/25 00:00 Apixaban 2.5 mg BID PO 01/26/25 10:00 01/28/25 09:17 2.5 MG Levothyroxine Sodium 100 mcg DAILY@0700 PO 01/26/25 07:00 01/28/25 06:06 100 MCG Losartan Potassium 50 mg DAILY PO 01/26/25 10:00 01/28/25 09:18 50 MG Atenolol 50 mg BID PO 01/26/25 10:00 01/28/25 09:15 50 MG Hydralazine HCl 10 mg Q8HP PRN IV 01/26/25 00:00 Prochlorperazine Edisylate 5 mg Q4HPRN PRN IV 01/26/25 00:45 Dronedarone 400 mg BID PO 01/26/25 10:00 01/28/25 09:13 400 MG Piperacillin Sod/ Tazobactam Sod 100 ml @ 25 mls/hr Q8HR IV 01/26/25 14:00 01/28/25 14:39 25 MLS/HR Famotidine 20 mg DAILY PO 01/27/25 10:00 01/28/25 09:17 20 MG laboratory and microbiology Laboratory Tests 01/26/25 12:17 01/25/25 20:49 Test 01/26/25 12:17 Range/Units Serum Glucose 99 74-106 mg/dL Problem List 1. Chronic decubitus ulcers Monitor, IV antibiotics, wound care consult, social services designee consult 2. HLD Monitor 3. Paroxysmal atrial fibrillation Monitor, DVT prophylaxis, monitor on EKG 4. Chronic anticoagulation Monitor, DVT prophylaxis, PPI 5. Hypothyroid Monitor, TSH level Assessment/Plan Subjective Patient is awake and alert Objective Patient was admitted on January 25, 2025, for generalized weakness. Patient was previously on hospice. Labs appear to be stable. She does have 2 decubitus ulcers to her coccyx. Patient was started on generalized antibiotics. No fever was noted. Patient was assessed by wound care. Patient was seen by social services designee. She requested to discharge back on hospice services and antibiotics were sent to her pharmacy. Patient stated she felt better with IV hydration and antibiotics. Patient was going to bee discharged today but guest services representative has not arranged resumption of home health. Plan DC planning. Plan discussed with: Patient, Other MARIXA CHAUDHARI JUNIOR STAFF ACCOUNTANT Jan 28, 2025 21:04
--- NOTE | 2025-01-28 21:05 | DVHPN2 ---
Progress Note - Dictate Date Seen: Jan 28, 2025 Medical Necessity Reason Pt with a Central, PICC or Fol: No vital signs Vital Sign Date Time Temp Pulse Resp B/P (MAP) Pulse Ox O2 Delivery O2 Flow Rate FiO2 01/28/25 20:35 98.4 66 17 95/46 (62) 96 98.4 01/28/25 08:00 Room Air* 0 21 Total Intake and Output 01/27/25 01/27/25 01/28/25 14:59 22:59 06:59 Intake Total 500 ml 340 ml Output Total 300 ml 200 ml Balance 200 ml 140 ml medications Current Medications Medications Dose Ordered Sig/Manas Route Start Time Stop Time Status Last Admin Dose Admin Acetaminophen/ Hydrocodone Bitart 1 tab Q4HP PRN PO 01/26/25 00:00 Temazepam 15 mg QHSP PRN PO 01/26/25 00:00 01/27/25 23:01 15 MG Acetaminophen 650 mg Q6HP PRN PO 01/26/25 00:00 Morphine Sulfate 2 mg Q4HPRN PRN IV 01/26/25 00:00 Nitroglycerin 0.4 mg Q5MINP PRN SL 01/26/25 00:00 Morphine Sulfate 2 mg Q30M PRN IV 01/26/25 00:00 Apixaban 2.5 mg BID PO 01/26/25 10:00 01/28/25 09:17 2.5 MG Levothyroxine Sodium 100 mcg DAILY@0700 PO 01/26/25 07:00 01/28/25 06:06 100 MCG Losartan Potassium 50 mg DAILY PO 01/26/25 10:00 01/28/25 09:18 50 MG Atenolol 50 mg BID PO 01/26/25 10:00 01/28/25 09:15 50 MG Hydralazine HCl 10 mg Q8HP PRN IV 01/26/25 00:00 Prochlorperazine Edisylate 5 mg Q4HPRN PRN IV 01/26/25 00:45 Dronedarone 400 mg BID PO 01/26/25 10:00 01/28/25 09:13 400 MG Piperacillin Sod/ Tazobactam Sod 100 ml @ 25 mls/hr Q8HR IV 01/26/25 14:00 01/28/25 14:39 25 MLS/HR Famotidine 20 mg DAILY PO 01/27/25 10:00 01/28/25 09:17 20 MG laboratory and microbiology Laboratory Tests 01/26/25 12:17 01/25/25 20:49 Test 01/26/25 12:17 Range/Units Serum Glucose 99 74-106 mg/dL Problem List 1. Chronic decubitus ulcers Monitor, IV antibiotics, wound care consult, social sciences lecturer consult 2. HLD Monitor 3. Paroxysmal atrial fibrillation Monitor, DVT prophylaxis, monitor on EKG 4. Chronic anticoagulation Monitor, DVT prophylaxis, PPI 5. Hypothyroid Monitor, TSH level Assessment/Plan Subjective Patient is awake and alert Objective Patient was admitted on January 25, 2025, for generalized weakness. Patient was previously on hospice. Labs appear to be stable. She does have 2 decubitus ulcers to her coccyx. Patient was started on generalized antibiotics. No fever was noted. Patient was assessed by wound care. Patient was seen by social sciences lecturer. She requested to discharge back on hospice services and antibiotics were sent to her pharmacy. Patient stated she felt better with IV hydration and antibiotics. Patient has been cleared for discharge for 2 days. Patient is now stating that her , Brady, is a patient in [facility] as well for pneumonia. I attempted to reach Brady at [phone]; however, I was unable to reach him and to leave a voicemail. I did speak with the primary RN, and I reconsulted social sciences lecturer for discharge planning. Plan DC planning. Plan discussed with: Patient, Other MARIXA CHAUDHARI NP Jan 28, 2025 21:05
[2025-01-29] VITALS (13 sets, daily range): BP systolic 102–124; BP diastolic 42–61; PULSE 50–63; RESP 16–20; TEMP 96.9–98.9; O2SAT 95–100
[2025-01-29] MEDS: ALBUTEROL SULF 2.5 MG/0.5ML(0.5%) NEB SOLN NEB PRN (03:32)
--- NOTE | 2025-01-29 12:12 | DVHPN2 ---
Progress Note Date Seen: Jan 29, 2025 Medical Necessity Reason Pt with a Central, PICC or Fol: No Subjective Review of Systems: CVS:Normal, RESPIRATORY:Normal, GI:Normal, :Normal, NEURO:Normal Objective vital signs Vital Sign Date Time Temp Pulse Resp B/P (MAP) Pulse Ox O2 Delivery O2 Flow Rate FiO2 01/29/25 10:00 97 Nasal Cannula* 2 28 01/29/25 10:00 56 116/57 01/29/25 09:00 98.9 18 98.9 Total Intake and Output 01/28/25 01/28/25 01/29/25 15:00 23:00 07:00 Intake Total 200 ml 900 ml Output Total 500 ml 150 ml Balance -300 ml 750 ml medications Current Medications Medications Dose Ordered Sig/Manas Route Start Time Stop Time Status Last Admin Dose Admin Acetaminophen/ Hydrocodone Bitart 1 tab Q4HP PRN PO 01/26/25 00:00 Temazepam 15 mg QHSP PRN PO 01/26/25 00:00 01/28/25 21:36 15 MG Acetaminophen 650 mg Q6HP PRN PO 01/26/25 00:00 Morphine Sulfate 2 mg Q4HPRN PRN IV 01/26/25 00:00 Nitroglycerin 0.4 mg Q5MINP PRN SL 01/26/25 00:00 Morphine Sulfate 2 mg Q30M PRN IV 01/26/25 00:00 Apixaban 2.5 mg BID PO 01/26/25 10:00 01/28/25 21:36 2.5 MG Levothyroxine Sodium 100 mcg DAILY@0700 PO 01/26/25 07:00 01/29/25 05:54 100 MCG Losartan Potassium 50 mg DAILY PO 01/26/25 10:00 01/28/25 09:18 50 MG Atenolol 50 mg BID PO 01/26/25 10:00 01/28/25 09:15 50 MG Hydralazine HCl 10 mg Q8HP PRN IV 01/26/25 00:00 Prochlorperazine Edisylate 5 mg Q4HPRN PRN IV 01/26/25 00:45 Dronedarone 400 mg BID PO 01/26/25 10:00 01/28/25 21:36 400 MG Piperacillin Sod/ Tazobactam Sod 100 ml @ 25 mls/hr Q8HR IV 01/26/25 14:00 01/29/25 05:54 25 MLS/HR Famotidine 20 mg DAILY PO 01/27/25 10:00 01/28/25 09:17 20 MG Albuterol 2.5 mg Q4HPRN PRN NEB 01/29/25 02:45 01/29/25 03:32 2.5 MG Examination: GENERAL:Normal, LUNGS:Normal, CVS:Normal, ABDOMEN:Normal, SKIN:Normal, NEURO:Normal laboratory and microbiology Laboratory Tests 01/26/25 12:17 01/25/25 20:49 Test 01/26/25 12:17 Range/Units Serum Glucose 99 74-106 mg/dL Microbiology Date/Time Source Procedure Growth Status 01/25/25 20:53 Blood Blood Culture - Preliminary NO GROWTH AFTER 72 HOURS OF INCUBATION. Resulted Labs and/or images reviewed: Labs reviewed by me, Image(s) reviewed by me Problem List/Assessment/Plan Problem List/Assessment/Plan Denise Bates presents with generalized weakness following recent hospitalization from January 25, 2025. The patient was previously enrolled in hospice care, however her hospice company discharged her when she came to the emergency room. She has 2 decubitus ulcers to her coccyx and was started on antibiotics during her admission. The patient received IV fluids and IV antibiotics and reports feeling better. She has been discharged for the past 3 days, and the case manager specialist is still working to arrange for a new hospice company. Her was at [facility] for pneumonia but was apparently discharged today. Denise Bates was admitted January 25, 2025 for generalized weakness and has chronic decubitus ulcers to her coccyx. Generalized Weakness Assessment: Patient was admitted for generalized weakness and has been receiving IV fluids and IV antibiotics, reporting feeling better after treatment. Patient was previously on hospice care but was discharged from hospice services when she came to the emergency room. Plan: - Continue IV antibiotics - manager money arranging for new hospice company Chronic Decubitus Ulcers Assessment: Patient has 2 decubitus ulcers to her coccyx. Antibiotics were initiated for treatment. Plan: - Continue IV antibiotics - Wound care consultation Paroxysmal Atrial Fibrillation Assessment: Patient has paroxysmal atrial fibrillation requiring ongoing management. Plan: - Continue recurrent medication - Continue anticoagulation Hyperlipidemia Assessment: Patient has hyperlipidemia requiring monitoring. Plan: - Monitor Hypothyroidism Assessment: Patient has hypothyroidism requiring thyroid function monitoring. Plan: - Monitor TSH Plan discussed with: Patient My Orders My Orders Orders - GRANT GUIDO Procedure Category Date Status Time Discharge DISCHARGE 01/29/25 Transmitted 10:52 Date of Service: Jan 29, 2025 Billing Provider: ALVARO RAIN MD Common Visit Codes: [id number] INP/OBS CARE (MOD) GRANT GUIDO Jan 29, 2025 12:12
[2025-01-30] VITALS (12 sets, daily range): BP systolic 95–145; BP diastolic 38–55; PULSE 46–58; RESP 16–18; TEMP 97.6–98.4; O2SAT 17–100
--- NOTE | 2025-01-30 11:00 | DVHPN2 ---
Progress Note Date Seen: Jan 30, 2025 Medical Necessity Reason Pt with a Central, PICC or Fol: No Subjective Review of Systems: CVS:Normal, RESPIRATORY:Normal, :Normal Objective vital signs Vital Sign Date Time Temp Pulse Resp B/P (MAP) Pulse Ox O2 Delivery O2 Flow Rate FiO2 01/30/25 10:00 97 Room Air* 0 21 01/30/25 10:00 54 98/56 01/30/25 09:00 97.6 16 97.6 Total Intake and Output 01/29/25 01/29/25 01/30/25 15:00 23:00 07:00 Intake Total 100 ml 210 ml 100 ml Output Total 250 ml Balance 100 ml -40 ml 100 ml medications Current Medications Medications Dose Ordered Sig/Manas Route Start Time Stop Time Status Last Admin Dose Admin Acetaminophen/ Hydrocodone Bitart 1 tab Q4HP PRN PO 01/26/25 00:00 Temazepam 15 mg QHSP PRN PO 01/26/25 00:00 01/28/25 21:36 15 MG Acetaminophen 650 mg Q6HP PRN PO 01/26/25 00:00 Morphine Sulfate 2 mg Q4HPRN PRN IV 01/26/25 00:00 Nitroglycerin 0.4 mg Q5MINP PRN SL 01/26/25 00:00 Morphine Sulfate 2 mg Q30M PRN IV 01/26/25 00:00 Apixaban 2.5 mg BID PO 01/26/25 10:00 01/30/25 08:59 2.5 MG Levothyroxine Sodium 100 mcg DAILY@0700 PO 01/26/25 07:00 01/30/25 06:27 100 MCG Losartan Potassium 50 mg DAILY PO 01/26/25 10:00 01/28/25 09:18 50 MG Atenolol 50 mg BID PO 01/26/25 10:00 01/29/25 21:56 50 MG Hydralazine HCl 10 mg Q8HP PRN IV 01/26/25 00:00 Prochlorperazine Edisylate 5 mg Q4HPRN PRN IV 01/26/25 00:45 Dronedarone 400 mg BID PO 01/26/25 10:00 01/29/25 21:53 400 MG Piperacillin Sod/ Tazobactam Sod 100 ml @ 25 mls/hr Q8HR IV 01/26/25 14:00 01/30/25 06:28 25 MLS/HR Famotidine 20 mg DAILY PO 01/27/25 10:00 01/30/25 10:16 20 MG Albuterol 2.5 mg Q4HPRN PRN NEB 01/29/25 02:45 01/29/25 03:32 2.5 MG Examination: GENERAL:Normal, LUNGS:Normal, CVS:Normal, ABDOMEN:Normal, SKIN:Normal, :Normal laboratory and microbiology Laboratory Tests 01/26/25 12:17 01/25/25 20:49 Test 01/26/25 12:17 Range/Units Serum Glucose 99 74-106 mg/dL Microbiology Date/Time Source Procedure Growth Status 01/25/25 20:53 Blood Blood Culture - Preliminary NO GROWTH AFTER 72 HOURS OF INCUBATION. Resulted Labs and/or images reviewed: Labs reviewed by me, Image(s) reviewed by me Problem List/Assessment/Plan Problem List/Assessment/Plan Denise Bates presents with generalized weakness following recent hospitalization from January 25, 2025. The patient was previously enrolled in hospice care, however her hospice company discharged her when she came to the emergency room. She has 2 decubitus ulcers to her coccyx and was started on antibiotics during her admission. The patient received IV fluids and IV antibiotics and reports feeling better. She has been discharged for the past 4 days, and the embedded case manager is still working to arrange for a new hospice company. Denise Bates was admitted January 25, 2025 for generalized weakness and has chronic decubitus ulcers to her coccyx. Generalized Weakness Assessment: Patient was admitted for generalized weakness and has been receiving IV fluids and IV antibiotics, reporting feeling better after treatment. Patient was previously on hospice care but was discharged from hospice services when she came to the emergency room. Plan: - Continue IV antibiotics - online marketing manager arranging for new hospice [employer] Chronic Decubitus Ulcers Assessment: Patient has 2 decubitus ulcers to her coccyx. Antibiotics were initiated for treatment. Plan: - Continue IV antibiotics - Wound care consultation Paroxysmal Atrial Fibrillation Assessment: Patient has paroxysmal atrial fibrillation requiring ongoing management. Plan: - Continue recurrent medication - Continue anticoagulation Hyperlipidemia Assessment: Patient has hyperlipidemia requiring monitoring. Plan: - Monitor Hypothyroidism Assessment: Patient has hypothyroidism requiring thyroid function monitoring. Plan: - Monitor TSH Plan discussed with: Patient Date of Service: Jan 30, 2025 Billing Provider: ALVARO RAIN MD Common Visit Codes: [id number] INP/OBS CARE (MOD) GRANT GUIDO PHOTO COLORER Jan 30, 2025 11:00
[2025-01-30] MEDS: SODIUM CHLORIDE 0.9% 500 ML IV ONE (21:00)
[2025-01-31] VITALS (7 sets, daily range): BP systolic 114–136; BP diastolic 37–63; PULSE 47–51; RESP 16–18; TEMP 97–98.3; O2SAT 96–100
[2025-01-31] MEDS: D5W/SOD CHLO 0.9% 1,000 ML IV SCH (02:10)
[2025-01-31 10:13] LABS: Hematocrit 36.6 % (36.0-46.0); Hemoglobin 12.0 g/dL (12.2-16.2); Mean Corpuscular Hemoglobin 30.7 pg (28.0-32.0); Mean Corpuscular Volume 93.4 fL (80.0-100.0); Nucleated Red Blood Cells % 0.2 %
[2025-01-31 10:29] LABS: Potassium 3.6 mmol/L (3.5-5.1)
[2025-01-31 10:31] LABS: Anion Gap 13 (5-15); Carbon Dioxide 26 mmol/L (20-31)
[2025-01-31 10:36] LABS: BUN/Creatinine Ratio 17.6 (10.0-20.0); Blood Urea Nitrogen 13 mg/dL (9-23); Glucose 87 mg/dL (74-106)
[2025-01-31 10:57] LABS: Calcium 8.5 mg/dL (8.7-10.4); Chloride 108 mmol/L (98-107); Sodium 147 mmol/L (136-145)
--- NOTE | 2025-01-31 17:57 | DVHDS2 ---
Discharge Summary Date of Admission Jan 25, 2025 at 23:53 Date of Discharge: Jan 29, 2025 Admitting Diagnosis generalized weakness Labs/Diagnostic Data: Laboratory Results Test 01/31/25 06:30 01/31/25 05:30 01/26/25 03:00 01/25/25 20:49 White Blood Count 6.1 10^3/uL (4.4-10.8) Red Blood Count 3.92 10^6/uL (4.0-5.20) Hemoglobin 12.0 g/dL (12.2-16.2) Hematocrit 36.6 % (36.0-46.0) Mean Corpuscular Volume 93.4 fL (80.0-100.0) Mean Corpuscular Hemoglobin 30.7 pg (28.0-32.0) Mean Corpuscular Hemoglobin Concent 32.9 g/dL (32.0-36.0) Red Cell Distribution Width 17.0 % (11.8-14.3) Platelet Count 273 10^3/uL (140-450) Mean Platelet Volume 9.5 fL (6.9-10.8) Neutrophils (%) (Auto) 64.9 % (37.0-80.0) Lymphocytes (%) (Auto) 23.3 % (10.0-50.0) Monocytes (%) (Auto) 8.4 % (0.0-12.0) Eosinophils (%) (Auto) 2.2 % (0.0-7.0) Basophils (%) (Auto) 1.2 % (0.0-2.0) Neutrophils # (Auto) 3.9 10 ^3/uL (1.6-8.6) Lymphocytes # (Auto) 1.4 10 ^3/uL (0.4-5.4) Monocytes # (Auto) 0.5 10 ^3/uL (0-1.3) Eosinophils # (Auto) 0.1 10 ^3/uL (0-0.8) Basophils # (Auto) 0.1 10 ^3/uL (0-0.2) Nucleated Red Blood Cells 0.2 % Sodium Level 147 mmol/L (136-145) Potassium Level 3.6 mmol/L (3.5-5.1) Chloride Level 108 mmol/L (98-107) Carbon Dioxide Level 26 mmol/L (20-31) Anion Gap 13 (5-15) Blood Urea Nitrogen 13 mg/dL (9-23) Creatinine 0.74 mg/dL (0.550-1.02) Glomerular Filtration Rate Calc 79 mL/min (>90) BUN/Creatinine Ratio 17.6 (10.0-20.0) Serum Glucose 87 mg/dL (74-106) Calcium Level 8.5 mg/dL (8.7-10.4) Urine Color Light-yellow (Yellow) Urine Clarity Turbid (Clear) Urine pH 6.0 (5.0-9.0) Urine Specific Gem 1.016 (1.001-1.035) Urine Protein Negative (Negative) Urine Ketones Trace (Negative) Urine Blood 3+ /uL (Negative) Urine Nitrite Negative (Negative) Urine Bilirubin Negative (Negative) Urine Urobilinogen Normal mg/dL (Negative) Urine Leukocyte Esterase 2+ /uL (Negative) Urine RBC 56 /hpf (0 - 4) Urine Microscopic WBC 62 /HPF (0-5) Urine Squamous Epithelial Cells Few /hpf (<5) Urine Calcium Oxalate Crystals Few (None Seen) Urine Bacteria None seen /hpf (None Seen) Urine Mucus Few (None Seen) Urine Glucose Normal mg/dL (Normal) Lactic Acid Level 1.3 mmol/L (0.4-2.0) Total Bilirubin 0.4 mg/dL (0.2-1.0) Aspartate Amino Transferase (AST) 25 U/L (13-40) Alanine Aminotransferase (ALT) 13 U/L (7-40) Alkaline Phosphatase 97 U/L (46-116) Total Protein 6.4 g/dL (5.7-8.2) Albumin 3.8 g/dL (3.2-4.8) Other Laboratory Tests 01/31/25 06:30 01/31/25 05:30 Brief Hx & Hospital Course: Denise Bates was admitted on January 25, 2025, for evaluation and management of generalized weakness in the setting of a chronic decubitus ulcer. During hospitalization, the patient was started on IV antibiotics for possible infection related to the ulcer. The patient had a prior history of hospice care, but she was discharged from hospice services after calling 911 and presenting to the hospital. Initially, plans were made to re-enroll her in hospice, and orders were placed accordingly; however, the patient later declined to resume hospice care, expressing a preference to continue standard medical treatment. The case management team attempted to coordinate placement at an assisted living facility. However, the required documentation could not be completed during this admission, as it must be filled out by her primary care provider (PCP). Therefore, the patient will be discharged home with home health services arranged for ongoing wound care and supportive management. She was continued on her home medications, including those for paroxysmal atrial fibrillation, and her condition remained stable at the time of discharge. The patient is advised to follow up with her PCP within one week of discharge to discuss long-term care planning and completion of the assisted living paperwork. She should also return to the emergency department if she experiences worsening weakness, pain, or any new concerning symptoms. Condition at Discharge: Fair Final Diagnosis/Problems List Gen weakness decubitus ulcers bedbound Discharge Disposition: Home with Health Services Discharge Instruct/Medications Diet: Regular Activity: No Restrictions, As Tolerated Follow Up/Referral: hospice Scheduled Acetaminophen (Acetaminophen), 500 MG PO Q6HP, (Reported) Alendronate Sodium (Alendronate Sodium), 1 TAB PO QWEEKLY, (Reported) Apixaban Base (Eliquis), 5 MG PO BID, (Reported) Atenolol (Atenolol), 50 MG PO BID, (Reported) Cephalexin Monohydrate (Cephalexin), 1 CAP PO BID Cholecalciferol (Vitamin D3 1.25 mg (08608 Ut)), 1 CAP PO Weekly, (Reported) Cyanocobalamin (Cyanocobalamin), 1 VIAL IM weekly, (Reported) Dronedarone Hydrochloride (Multaq), 1 TAB PO BID, (Reported) Hctz (Hydrochlorothiazide), 12.5 MG PO DAILY, (Reported) Levofloxacin Hemihydrate (Levofloxacin), 250 MG PO DAILY, (Reported) Levothyroxine Sodium (Levothyroxine Sodium), 100 MCG PO DAILY, (Reported) Losartan Potassium (Losartan Potassium), 50 MG PO DAILY, (Reported) Miscellaneous Medications Metronidazole (Metronidazole), 500 MG PO, (Reported) Discontinued Medications Nitrofurantoin Monohydrate Mac (Macrobid), 100 MG PO DAILY, (Reported) Discharge Statement: "Patient was advised to return to the ER or call 911 if any headaches, dizziness, shortness of breath, chest pain, abdominal pain, bleeding, fevers, or worsening of medical condition. Patient was counseled about treatment plan, medications, possible side effects, patientverbalized understanding. All questions were answered to the best of my ability. This discharge took greater then 30 minutes in planning, reviewing documentation, counseling the patient, and discussing with other team members." ASSESSMENT ASSESSMENT Assessment Gen weakness decubitus ulcers bedbound GRANT GUIDO [facility] Jan 31, 2025 17:57
== END 2025-01-31 17:45 | disposition home health service (06) | DRG 74 ==
LOC: ER 20:00 → EDBD 20:00 → OVERFLOW 23:53 → TELE-WESTW 01-26 17:55 → WEST WING 01-27 00:36 → TELE-WESTW 01-28 07:45
PROVIDERS: ADMIT Nurse Practitioner; ATTEND Nurse Practitioner
DX: G90.89 Other disorders of autonomic nervous system (principal); Z51.5 Encounter for palliative care; L89.159 Pressure ulcer of sacral region, unspecified stage; Z79.01 Long term (current) use of anticoagulants; E03.9 Hypothyroidism, unspecified; I10 Essential (primary) hypertension; I48.0 Paroxysmal atrial fibrillation; E78.5 Hyperlipidemia, unspecified; R53.1 Weakness; Z74.01 Bed confinement status; Z80.6 Family history of leukemia; Z79.899 Other long term (current) drug therapy; Z88.2 Allergy status to sulfonamides
CPT/HCPCS: 36415; 71045; 72192; 80048; 80053; 81001; 82565; 83605; 85025; 87040; 93005; 94640; 96361; 96374; G0378; J2543; J3480; J7042